=== PATIENT | male | born 1945 | race Caucasian/White ===

== ENCOUNTER 2018-02-27 17:55 | Inpatient (IN) | payer MEDICARE, MEDICAID ==
[~2018-02-27] VITALS: Ht 182.9 cm; Wt 65.3 kg
[2018-02-27] MEDS ORDERED: MORPHINE SULFATE 4 MG/1 ML DISP.SYRIN IV ONE ×2 (18:15→19:45)
[2018-02-27] MEDS ORDERED: ONDANSETRON 4 MG/2 ML VIAL IV ONE (18:15)
[2018-02-27] MEDS ORDERED: MORPHINE SULFATE 4 MG/1 ML DISP.SYRIN ONE ×2 (18:21→20:14)
[2018-02-27] MEDS ORDERED: ONDANSETRON 4 MG/2 ML VIAL ONE (18:22)
[2018-02-27] MEDS ORDERED: ACET-2154 PO ×2 (18:33)
[2018-02-27] MEDS ORDERED: GABA100C PO (18:33)
[2018-02-27] MEDS ORDERED: CARB1TAB13 PO (18:33)
[2018-02-27] MEDS ORDERED: DICL100G16 TP (18:33)
[2018-02-27] MEDS ORDERED: FLUT9.9S NS (18:33)
[2018-02-27] MEDS ORDERED: AMAN100T PO (18:33)
[2018-02-27] MEDS ORDERED: GLUC10007 MM (18:33)
[2018-02-27] MEDS ORDERED: BISA10SU8 RC (18:33)
[2018-02-27] MEDS ORDERED: OMEP20TA20 PO (18:33)
[2018-02-27] MEDS ORDERED: GEL100GE MC (18:33)
[2018-02-27] MEDS ORDERED: TRIA60LO14 TP ×2 (18:33)
[2018-02-27] MEDS ORDERED: FLUO15OI TP (18:33)
[2018-02-27] MEDS ORDERED: POTA10TA15 PO (18:33)
[2018-02-27] MEDS ORDERED: DUTA0.5C PO (18:33)
[2018-02-27] MEDS ORDERED: MEMA10TA PO (18:33)
[2018-02-27] MEDS ORDERED: FURO-151 PO (18:33)
[2018-02-27] MEDS ORDERED: POLY17PO4 PO (18:33)
[2018-02-27] MEDS ORDERED: LORA10TA7 PO (18:33)
[2018-02-27] MEDS ORDERED: PRIM50TA PO (18:33)
[2018-02-27] MEDS ORDERED: POLY15DR57 EACHEYE (18:33)
[2018-02-27] MEDS ORDERED: HYDROMORPHONE 1 MG/1 ML DISP.SYRIN IV ONE (19:45)
[2018-02-27 21:00] VITALS: BP 121/71
[2018-02-27] MEDS ORDERED: ACETAMINOPHEN 325 MG TABLET PO PRN (22:45)
[2018-02-27] MEDS: GABAPENTIN 100 MG CAPSULE PO SCH (23:16)
[2018-02-27] MEDS: MORPHINE SULFATE 4 MG/1 ML DISP.SYRIN IV PRN (23:16)
[2018-02-27] MEDS: HEPARIN SODIUM,PORCINE 5,000 UNITS/ML VIAL SQ SCH (23:16)
[2018-02-27] MEDS: PRIMIDONE 50 MG TABLET PO SCH (23:16)
[2018-02-27] MEDS: MEMANTINE HCL 10 MG TABLET PO SCH (23:16)
[2018-02-28 05:56] VITALS: BP 120/62
[2018-02-28 06:14] LABS: BASOPHILS % (AUTO) 0.2 % (0.0-2.0); EOSINOPHILS # (AUTO) 0.2 K/uL (0.0-0.7); EOSINOPHILS % (AUTO) 2.2 % (0.0-7.0); HEMATOCRIT 30.6 % (36.7-47.1); HEMOGLOBIN 10.9 g/dL (12.5-16.3); LYMPHOCYTES # (AUTO) 2.8 K/uL (20.0-40.0); LYMPHOCYTES % (AUTO) 37.6 % (20.5-51.5); MEAN CORPUSCULAR HEMOGLOBIN 35.4 uug (23.8-33.4); MEAN CORPUSCULAR HGB CONC 36 g/dL (32.5-36.3); MEAN CORPUSCULAR VOLUME 99.7 fL (73.0-96.2); MONOCYTES # (AUTO) 0.6 K/uL (2.0-10.0); MONOCYTES % (AUTO) 7.5 % (0.0-11.0); NEUTROPHILS % (AUTO) 52.5 % (38.5-71.5); PLATELET COUNT (AUTO) 227 K/uL (152-348); RED BLOOD CELL COUNT(AUTO) 3.07 MIL/uL (4.06-5.63); WHITE BLOOD COUNT (AUTO) 7.6 K/uL (3.6-10.2)
[2018-02-28 06:20] LABS: CARBON DIOXIDE 25 mmol/L (21-32); CHLORIDE 104 mmol/L (98-107); CREATININE 1.9 mg/dL (0.6-1.3); GLUCOSE 100 mg/dL (74-106); POTASSIUM 3.9 mmol/L (3.5-5.1); UREA NITROGEN, BLOOD 39 mg/dL (7-18)
[2018-02-28] MEDS ORDERED: [UNRECOGNIZED DRUG - OTHER] PO SCH (08:45)
[2018-02-28] MEDS ORDERED: FLUOCINONIDE 0.05% OINT 15 GM TUBE TP PRN (08:45)
[2018-02-28] MEDS ORDERED: ENTACAPONE PO SCH (08:45)
[2018-02-28] MEDS ORDERED: CARBIDOPA PO SCH (08:45)
[2018-02-28] MEDS ORDERED: TRIAMCINOLONE ACETONIDE 0.1% 60 ML LOTION BOTTLE TP PRN (08:45)
[2018-02-28] MEDS ORDERED: BISACODYL 10 MG SUPP.RECT RC PRN (08:45)
[2018-02-28] MEDS ORDERED: ACETAMINOPHEN 325 MG TABLET PO PRN (08:45)
[2018-02-28] MEDS ORDERED: LEVODOPA PO SCH (08:45)
[2018-02-28] MEDS ORDERED: MEMANTINE HCL 10 MG TABLET PO SCH (09:00)
[2018-02-28] MEDS ORDERED: HEPARIN SODIUM,PORCINE 5,000 UNITS/ML VIAL SQ SCH (09:00)
[2018-02-28] MEDS ORDERED: TRIAMCINOLONE ACETONIDE 0.1% 60 ML LOTION BOTTLE TP SCH (09:00)
[2018-02-28] MEDS ORDERED: VOLTAREN GEL XX SCH (09:00)
[2018-02-28] MEDS: MIRALAX 17 GM POWD.PACK PO SCH (09:33)
[2018-02-28] MEDS: LYTES/YERBA SANTA 240 ML BOTTLE MM PRN ×3 (09:34→16:45)
[2018-02-28] MEDS: FLUTICASONE PROP NASAL SPRAY 16 GM BOTTLE NS PRN (09:34)
[2018-02-28] MEDS: FUROSEMIDE 40 MG TABLET PO SCH (09:35)
[2018-02-28] MEDS: POLYVINYL ALCOHOL OPHT DROPS 15 ML BOTTLE EACHEYE SCH ×3 (09:35→16:45)
[2018-02-28] MEDS: AMANTADINE HCL 100 MG CAPSULE PO SCH ×2 (09:35→21:09)
[2018-02-28] MEDS: LORATADINE 10 MG TABLET PO SCH (09:36)
[2018-02-28] MEDS: DUTASTERIDE 0.5 MG CAPSULE PO SCH (09:36)
[2018-02-28] MEDS: ACETAMINOPHEN 325 MG TABLET PO SCH (09:36)
[2018-02-28] MEDS: HEPARIN SODIUM,PORCINE 5,000 UNITS/ML VIAL SQ SCH ×2 (09:38→21:03)
[2018-02-28] MEDS: MEMANTINE HCL 10 MG TABLET PO SCH ×2 (09:39→20:59)
[2018-02-28] MEDS: POTASSIUM CHLORIDE 10 MEQ TAB.PRT.SR PO SCH (09:39)
[2018-02-28] MEDS ORDERED: FLUOCINONIDE 0.05% SOLU 60 ML BOTTLE TP PRN (10:00)
[2018-02-28] MEDS ORDERED: TRIAMCINOLONE ACET 0.1% CREAM 15 GM TUBE TP PRN (10:15)
[2018-02-28 11:13] VITALS: BP 124/69
[2018-02-28] MEDS: ENTACAPONE 200 MG TABLET PO SCH ×4 (12:08→20:58)
[2018-02-28] MEDS: CARBIDOPA/LEVODOPA 25-100MG TABLET PO SCH ×4 (12:08→20:59)
[2018-02-28] MEDS: TRIAMCINOLONE ACET 0.1% CREAM 15 GM TUBE TP SCH ×2 (12:08→16:45)
[2018-02-28] MEDS: MORPHINE SULFATE 4 MG/1 ML DISP.SYRIN IV PRN ×2 (12:10→21:35)
[2018-02-28 15:05] VITALS: BP 122/75
[2018-02-28 20:58] VITALS: BP 126/65
[2018-02-28] MEDS: PRIMIDONE 50 MG TABLET PO SCH (20:59)
[2018-02-28] MEDS: GABAPENTIN 100 MG CAPSULE PO SCH (21:00)
[2018-02-28] MEDS ORDERED: GABAPENTIN 100 MG CAPSULE PO SCH (21:00)
[2018-02-28] MEDS ORDERED: PRIMIDONE 50 MG TABLET PO SCH (21:00)
[2018-03-01 05:26] VITALS: BP 110/70
[2018-03-01] MEDS: ENTACAPONE 200 MG TABLET PO SCH ×5 (06:08→17:33)
[2018-03-01] MEDS: CARBIDOPA/LEVODOPA 25-100MG TABLET PO SCH ×5 (06:08→17:34)
[2018-03-01 06:52] LABS: BASOPHILS % (AUTO) 0.3 % (0.0-2.0); EOSINOPHILS # (AUTO) 0.3 K/uL (0.0-0.7); EOSINOPHILS % (AUTO) 3.6 % (0.0-7.0); HEMATOCRIT 31.5 % (36.7-47.1); LYMPHOCYTES # (AUTO) 2.1 K/uL (20.0-40.0); MEAN CORPUSCULAR HEMOGLOBIN 35.2 uug (23.8-33.4); MEAN CORPUSCULAR HGB CONC 35 g/dL (32.5-36.3); MEAN CORPUSCULAR VOLUME 100.3 fL (73.0-96.2); MONOCYTES # (AUTO) 0.6 K/uL (2.0-10.0); MONOCYTES % (AUTO) 7.6 % (0.0-11.0); NEUTROPHILS # (AUTO) 4.5 K/uL (1.8-8.9); NEUTROPHILS % (AUTO) 60.5 % (38.5-71.5); PLATELET COUNT (AUTO) 210 K/uL (152-348); RED BLOOD CELL COUNT(AUTO) 3.14 MIL/uL (4.06-5.63); WHITE BLOOD COUNT (AUTO) 7.5 K/uL (3.6-10.2)
[2018-03-01] MEDS ORDERED: PANTOPRAZOLE SODIUM 40 MG TABLET.DR PO SCH (07:00)
[2018-03-01 07:36] LABS: ALANINE AMINOTRANSFERASE 7 U/L (16-63); ALKALINE PHOSPHATASE 112 U/L (50-136); ASPARTATE AMINOTRANSFERASE 20 U/L (15-37); BILIRUBIN,TOTAL 0.7 mg/dL (0.2-1.0); CARBON DIOXIDE 23 mmol/L (21-32); CHLORIDE 104 mmol/L (98-107); CREATININE 2.1 mg/dL (0.6-1.3); GLUCOSE 98 mg/dL (74-106); MAGNESIUM 2.2 mg/dL (1.8-2.4); PHOSPHOROUS 4.1 mg/dL (2.5-4.9); POTASSIUM 4.3 mmol/L (3.5-5.1); TOTAL PROTEIN, SERUM 7.6 g/dL (6.4-8.2); UREA NITROGEN, BLOOD 46 mg/dL (7-18)
[2018-03-01] MEDS: MORPHINE SULFATE 4 MG/1 ML DISP.SYRIN IV PRN (07:45)
[2018-03-01] MEDS: DUTASTERIDE 0.5 MG CAPSULE PO SCH (09:30)
[2018-03-01] MEDS: MIRALAX 17 GM POWD.PACK PO SCH (09:30)
[2018-03-01] MEDS: LORATADINE 10 MG TABLET PO SCH (09:30)
[2018-03-01] MEDS: MEMANTINE HCL 10 MG TABLET PO SCH (09:30)
[2018-03-01] MEDS: ACETAMINOPHEN 325 MG TABLET PO SCH (09:30)
[2018-03-01] MEDS: FUROSEMIDE 40 MG TABLET PO SCH (09:30)
[2018-03-01] MEDS: POTASSIUM CHLORIDE 10 MEQ TAB.PRT.SR PO SCH (09:31)
[2018-03-01] MEDS: HEPARIN SODIUM,PORCINE 5,000 UNITS/ML VIAL SQ SCH (09:32)
[2018-03-01] MEDS: POLYVINYL ALCOHOL OPHT DROPS 15 ML BOTTLE EACHEYE SCH ×3 (09:33→17:33)
[2018-03-01] MEDS: TRIAMCINOLONE ACET 0.1% CREAM 15 GM TUBE TP SCH ×2 (09:33→17:33)
[2018-03-01] MEDS: FLUTICASONE PROP NASAL SPRAY 16 GM BOTTLE NS PRN (09:45)
[2018-03-01] MEDS: LYTES/YERBA SANTA 240 ML BOTTLE MM PRN ×3 (09:45→17:33)
[2018-03-01] MEDS: AMANTADINE HCL 100 MG CAPSULE PO SCH (10:12)
[2018-03-01 11:44] VITALS: BP 150/78
[2018-03-01 15:26] VITALS: BP 108/60
== END 2018-03-01 18:15 | DRG 914 ==
LOC: ER 17:55 → TELE 21:23 → MED 22:35
PROVIDERS: ADMIT Internal Medicine Nephrology; ATTEND Internal Medicine Nephrology
DX: S09.90XA Unspecified injury of head, initial encounter (principal); N17.9 Acute kidney failure, unspecified; N18.4 Chronic kidney disease, stage 4 (severe); F02.80 Dementia in other diseases classified elsewhere, unspecified severity, without behavioral disturbance, psychotic disturbance, mood disturbance, and anxiety; G31.83 Neurocognitive disorder with Lewy bodies; S42.342A Displaced spiral fracture of shaft of humerus, left arm, initial encounter for closed fracture; W05.0XXA Fall from non-moving wheelchair, initial encounter; J32.2 Chronic ethmoidal sinusitis; Y92.129 Unspecified place in nursing home as the place of occurrence of the external cause; N40.0 Benign prostatic hyperplasia without lower urinary tract symptoms; Z99.3 Dependence on wheelchair; I73.00 Raynaud's syndrome without gangrene; K21.9 Gastro-esophageal reflux disease without esophagitis; I12.9 Hypertensive chronic kidney disease with stage 1 through stage 4 chronic kidney disease, or unspecified chronic kidney disease
CPT/HCPCS: 36415; 70450; 72125; 73030; 73060; 76770; 83735; 84100; 85025; 93005; A4663; A9155; J1644; J2270; J2405; J3535; J7030

== ENCOUNTER 2019-10-20 14:08 | Inpatient (IN) | payer MEDICARE, MEDICAID ==
[~2019-10-20] VITALS: Ht 175.3 cm; Wt 68.0 kg
[~2019-10-20 14:08] MED LIST: ACET-2154 PO; AMAN100T PO; BISA10SU11 RC; CARB1TAB13 PO; DICL100G16 TP; DUTA0.5C PO; FLUO15OI TP; FLUT9.9S NS; FURO-151 PO; GABA100C PO; GEL100GE MC; GLUC10007 MM; LORA10TA7 PO; MEMA10TA PO; OMEP20TA20 PO; POLY15DR31 EACHEYE; POLY17PO4 PO; POTA10TA15 PO; PRIM50TA PO; TRIA60LO14 TP
[2019-10-20] MEDS ORDERED: FURO20TA4 PO (14:27)
[2019-10-20] MEDS ORDERED: CARB1TAB13 PO (14:27)
[2019-10-20] MEDS ORDERED: LEVO75TA7 PO (14:27)
[2019-10-20] MEDS ORDERED: TIOT18CA3 IH (14:27)
[2019-10-20] MEDS ORDERED: BUDE10.2 IH (14:27)
[2019-10-20] MEDS ORDERED: CARB15DR OP (14:27)
[2019-10-20] MEDS ORDERED: PSEU30CA2 PO (14:27)
--- NOTE | 2019-10-20 14:36 | NUR ---
PT IS IN ROOM #1B. DR BAGLEY EVALUATE THE PT.
[2019-10-20 14:39] LABS: BASOPHILS % (AUTO) 0.5 % (0.0-2.0); EOSINOPHILS # (AUTO) 0.2 K/uL (0.0-0.7); EOSINOPHILS % (AUTO) 4.1 % (0.0-7.0); HEMATOCRIT 35.1 % (36.7-47.1); LYMPHOCYTES % (AUTO) 40.9 % (20.5-51.5); MEAN CORPUSCULAR HEMOGLOBIN 33.4 uug (23.8-33.4); MEAN CORPUSCULAR HGB CONC 34 g/dL (32.5-36.3); MEAN CORPUSCULAR VOLUME 97.8 fL (73.0-96.2); MONOCYTES # (AUTO) 0.4 K/uL (2.0-10.0); MONOCYTES % (AUTO) 7.7 % (0.0-11.0); NEUTROPHILS # (AUTO) 2.2 K/uL (1.8-8.9); NEUTROPHILS % (AUTO) 46.8 % (38.5-71.5); PLATELET COUNT (AUTO) 236 K/uL (152-348); RED BLOOD CELL COUNT(AUTO) 3.59 MIL/uL (4.06-5.63); WHITE BLOOD COUNT (AUTO) 4.8 K/uL (3.6-10.2)
[2019-10-20 14:50] LABS: CARBON DIOXIDE 28 mmol/L (21-32); CHLORIDE 102 mmol/L (98-107); CREATININE 1.7 mg/dL (0.6-1.3); GLUCOSE 112 mg/dL (74-106); POTASSIUM 4.1 mmol/L (3.5-5.1); UREA NITROGEN, BLOOD 27 mg/dL (7-18)
[2019-10-20 14:57] LABS: ALANINE AMINOTRANSFERASE < 6 U/L (16-63); ALKALINE PHOSPHATASE 146 U/L (50-136); ASPARTATE AMINOTRANSFERASE 11 U/L (15-37); BILIRUBIN,DIRECT 0.1 mg/dL (0.0-0.2); BILIRUBIN,TOTAL 0.6 mg/dL (0.2-1.0); TOTAL PROTEIN, SERUM 8.3 g/dL (6.4-8.2)
[2019-10-20] MEDS ORDERED: CEFTRIAXONE /D5W 50ML IVPB **ER PYXIS IV ONE (16:00)
[2019-10-20] MEDS ORDERED: CEFTRIAXONE 1 G in IV DEXTROSE 5% 50 ML IV ONE (16:00)
[2019-10-20] MEDS ORDERED: AZITHROMYCIN IV 500 MG in IV DEXTROSE 5% 250 ML IV ONE (16:00)
[2019-10-20] MEDS ORDERED: AZITHROMYCIN 500MG/ D5W 250ML IVPB **ER PYXIS ONLY IV ONE (16:03)
[2019-10-20] MEDS ORDERED: PIPERACILLIN/TAZOBACTAM/D5W 3.375 G in PREMIXED 1 EACH IV ONE (17:30)
[2019-10-20] MEDS ORDERED: LEVOFLOXACIN 750MG/D5W 750 MG in PREMIXED 1 EACH IV ONE (17:30)
--- NOTE | 2019-10-20 17:33 | NUR ---
REPORT WAS GIVEN TO GATEKEEPER. PT WAS TRANSFERED TO ROOM #310.
--- NOTE | 2019-10-20 17:46 | NUR ---
RECEIVED PATIENT FROM ED BY SARAH ASSISTED INTO BED FIXED AND MADE COMFORTABLE TELE APPLIED O2 TITRATED TO ONE LITER HE IS AT 100 PERCENT AT 2L BY NASAL CANULLA.HE IS AWAKE AND ALERT SEEMS TO UNDERSTAND WILL TRY TO ADMIT HIM CALLED DR CARTY FOR ADMISSION ORDERS SPOKE WITH ALBERTO STATED WILL PAGE DR CARTY.
[2019-10-20 18:04] VITALS: BP 148/76
--- NOTE | 2019-10-20 18:10 | NUR ---
dr hensley here to see patient stated will put mily all the orders.
[2019-10-20 20:55] VITALS: BP 154/80
--- NOTE | 2019-10-20 21:05 | NUR ---
Spoke with dr Zhong, ordered to resume HS gabapentin and namenda, Tylenol PRN
[2019-10-20] MEDS ORDERED: ENTACAPONE PO SCH (21:30)
[2019-10-20] MEDS ORDERED: [UNRECOGNIZED DRUG - OTHER] PO SCH (21:30)
[2019-10-20] MEDS ORDERED: BISACODYL 10 MG SUPP.RECT RC PRN (21:30)
[2019-10-20] MEDS ORDERED: LEVODOPA PO SCH (21:30)
[2019-10-20] MEDS ORDERED: ACETAMINOPHEN 325 MG TABLET PO PRN ×2 (21:30)
[2019-10-20] MEDS ORDERED: CARBIDOPA PO SCH (21:30)
[2019-10-20] MEDS ORDERED: Z GUARD REMEDY PASTE 57 GM TUBE TOP PRN (22:00)
[2019-10-20] MEDS ORDERED: ZOLPIDEM 5 MG TABLET PO PRN (22:00)
[2019-10-20] MEDS ORDERED: ONDANSETRON 4 MG/2 ML VIAL IV PRN (22:00)
[2019-10-20] MEDS ORDERED: HYDROCODONE/APAP 5-325MG TABLET PO PRN (22:00)
[2019-10-21 01:00] VITALS: BP 161/72
[2019-10-21 05:20] VITALS: BP 100/61
[2019-10-21] MEDS: LEVOTHYROXINE SODIUM 75 MCG TABLET PO SCH ×2 (07:05→07:12)
--- NOTE | 2019-10-21 07:30 | NUR ---
Patient is calm and comfortable with no signs of distress; patient will continue to be monitored through out shift.
[2019-10-21] MEDS ORDERED: MEMANTINE HCL 10 MG TABLET PO SCH ×3 (09:00→09:45)
[2019-10-21] MEDS: FUROSEMIDE 20 MG TABLET PO SCH (09:45)
[2019-10-21] MEDS: MIRALAX 17 GM POWD.PACK PO SCH (09:47)
[2019-10-21] MEDS: MEMANTINE HCL 10 MG TABLET PO SCH ×2 (09:50→20:20)
[2019-10-21] MEDS: ENTACAPONE 200 MG TABLET PO SCH ×5 (09:50→20:20)
[2019-10-21] MEDS: CARBIDOPA/LEVODOPA 25-100MG TABLET PO SCH ×5 (09:51→20:20)
--- NOTE | 2019-10-21 10:36 | NUR ---
CLINICAL PHARMACY NOTE: VANCOMYCIN PHARMACY TO DOSE Subjective: To start vancomycin in this 74 y/o male for indication of pneumonia Objective: weight 68kg height 175cm BUN/SCr 27/1.7(10/20) wbc 4.8(10/20) temp 97.6 Assessment/Plan Due to elevated srcr, will dose vancomycin by random level. Will give vanco 1gm IVPB x1 today at 1100 & plan to draw vanco random level tomorrow am for further dosing. Will continue to monitor.
[2019-10-21] MEDS: LORAZEPAM 2 MG/1 ML VIAL IV PRN ×2 (10:57→23:49)
[2019-10-21] MEDS ORDERED: VANCOMYCIN IV 1,000 MG in IV DEXTROSE 5% 250 ML IV ONE (11:00)
[2019-10-21 11:05] VITALS: BP 163/78
[2019-10-21] MEDS: PIPERACILLIN SODIUM/TAZOBACTAM 3.375 G in IV DEXTROSE 5% 50 ML IV SCH ×2 (14:47→21:02)
[2019-10-21 15:20] VITALS: BP 123/58
[2019-10-21] MEDS ORDERED: LYTES/YERBA SANTA 240 ML BOTTLE MM PRN (16:45)
[2019-10-21] MEDS ORDERED: CARB-92 PO (17:24)
--- NOTE | 2019-10-21 18:32 | NUR ---
Patient in stable condition; patient at baseline mental status ; patient had ct of chest during shift; prn Ativan was administered per patient baseline confusion and MD order. Patient family bedside through out shift; Patient medication compliant ; patient ate small amount of dinner; Report given to on coming nurse.
[2019-10-21] MEDS: IPRATROPIUM BROMIDE 0.5 MG/2.5 ML NEBU NEB SCH (19:13)
[2019-10-21] MEDS: GABAPENTIN 100 MG CAPSULE PO SCH (20:20)
[2019-10-21 20:50] VITALS: BP 123/62
[2019-10-22 00:32] VITALS: BP 145/77
[2019-10-22] MEDS: IPRATROPIUM BROMIDE 0.5 MG/2.5 ML NEBU NEB SCH ×4 (00:41→19:25)
[2019-10-22 05:05] VITALS: BP 129/61
[2019-10-22] MEDS: PIPERACILLIN SODIUM/TAZOBACTAM 3.375 G in IV DEXTROSE 5% 50 ML IV SCH ×3 (05:58→21:22)
[2019-10-22] MEDS: LEVOTHYROXINE SODIUM 75 MCG TABLET PO SCH (06:17)
[2019-10-22] MEDS: CARBIDOPA/LEVODOPA 25-100MG TABLET PO SCH ×6 (06:17→20:01)
[2019-10-22] MEDS: ENTACAPONE 200 MG TABLET PO SCH ×6 (06:18→20:00)
--- NOTE | 2019-10-22 06:56 | NUR ---
Patient slept intermittently. Noted w/ episode of agitation and combative during diaper change, PRN Ativan 0.5mg IV given. Will endorse accordingly
[2019-10-22 07:12] LABS: BASOPHILS % (AUTO) 0.6 % (0.0-2.0); EOSINOPHILS # (AUTO) 0.2 K/uL (0.0-0.7); EOSINOPHILS % (AUTO) 3.3 % (0.0-7.0); HEMATOCRIT 35.3 % (36.7-47.1); HEMOGLOBIN 12.2 g/dL (12.5-16.3); LYMPHOCYTES # (AUTO) 2.4 K/uL (20.0-40.0); LYMPHOCYTES % (AUTO) 42.1 % (20.5-51.5); MEAN CORPUSCULAR HEMOGLOBIN 33.1 uug (23.8-33.4); MEAN CORPUSCULAR HGB CONC 35 g/dL (32.5-36.3); MONOCYTES # (AUTO) 0.4 K/uL (2.0-10.0); MONOCYTES % (AUTO) 6.7 % (0.0-11.0); NEUTROPHILS # (AUTO) 2.7 K/uL (1.8-8.9); NEUTROPHILS % (AUTO) 47.3 % (38.5-71.5); PLATELET COUNT (AUTO) 237 K/uL (152-348); RED BLOOD CELL COUNT(AUTO) 3.67 MIL/uL (4.06-5.63); WHITE BLOOD COUNT (AUTO) 5.7 K/uL (3.6-10.2)
[2019-10-22 07:25] LABS: ALANINE AMINOTRANSFERASE < 6 U/L (16-63); ALKALINE PHOSPHATASE 132 U/L (50-136); ASPARTATE AMINOTRANSFERASE 10 U/L (15-37); BILIRUBIN,TOTAL 0.8 mg/dL (0.2-1.0); CARBON DIOXIDE 28 mmol/L (21-32); CHLORIDE 103 mmol/L (98-107); CREATININE 1.7 mg/dL (0.6-1.3); GLUCOSE 103 mg/dL (74-106); MAGNESIUM 2.2 mg/dL (1.8-2.4); PHOSPHOROUS 3.9 mg/dL (2.5-4.9); POTASSIUM 3.9 mmol/L (3.5-5.1); TOTAL PROTEIN, SERUM 7.8 g/dL (6.4-8.2); UREA NITROGEN, BLOOD 23 mg/dL (7-18)
--- NOTE | 2019-10-22 07:30 | NUR ---
Sleeping, appears comfortable, not in distress. Bed alarm on
[2019-10-22] MEDS ORDERED: VANCOMYCIN IV 1,000 MG in IV DEXTROSE 5% 250 ML IV ONE (09:30)
[2019-10-22] MEDS: MIRALAX 17 GM POWD.PACK PO SCH (09:46)
[2019-10-22] MEDS: FUROSEMIDE 20 MG TABLET PO SCH (09:46)
[2019-10-22] MEDS: MEMANTINE HCL 10 MG TABLET PO SCH ×2 (09:46→20:01)
[2019-10-22] MEDS: FLUTICASONE/VILANTEROL 1 EACH BLST.W.DEV INH SCH (09:48)
--- NOTE | 2019-10-22 12:00 | NUR ---
Received hand off report from ELIOT Ortiz. Patient AAOx1. Confused. In no acute distress at this time. IV intact and patent. Safety measures implemented. Will continue to monitor.
[2019-10-22 12:09] VITALS: BP 141/66
[2019-10-22 16:13] VITALS: BP 129/75
--- NOTE | 2019-10-22 18:37 | NUR ---
Patient resting in bed comfortably at this time. In no distress. at bedside. Comfort provided at all times. Will endorse care accordingly.
[2019-10-22 18:56] LABS: *BILIRUBIN,URIN NEGATIVE (NEGATIVE); *BLOOD, URINE NEGATIVE (NEGATIVE); *CLARITY,URINE CLEAR (CLEAR); *COLOR,URINE DARK YELLOW (YELLOW); *KETONES,URINE NEGATIVE (NEGATIVE); *UROBILINOGEN,URINE 0.2 E.U./dl (NORMAL); LEUKOCYTE ESTERASE ,URINE NEGATIVE (NEGATIVE); NITRITE, URINE NEGATIVE (NEGATIVE); PH,URINE 6.5 (5.0-8.0); UGLUCOSE NEGATIVE (NEGATIVE)
[2019-10-22 19:11] LABS: RBC,URINE 0-3 /HPF (0-3); WBC,URINE 0-3 /HPF (0-3)
[2019-10-22 19:12] LABS: MUCUS,URINE FEW /LPF (0-FEW); SQUAMOUS EPITHELIAL CELL,UR FEW /HPF (NONE SEEN)
[2019-10-22 19:14] LABS: *CREATININE,URINE 105.3 mg/dL (30-125); *URINE TOTAL PROTEIN RANDOM 49.4 mg/dL (<150/24HR)
[2019-10-22] MEDS: GABAPENTIN 100 MG CAPSULE PO SCH (20:01)
[2019-10-22 20:04] VITALS: BP 135/55
[2019-10-22] MEDS ORDERED: CULTURELLE CAPSULE PO SCH (21:00)
[2019-10-23] VITALS: BP 122/68
[2019-10-23] MEDS: IPRATROPIUM BROMIDE 0.5 MG/2.5 ML NEBU NEB SCH ×3 (00:46→13:42)
[2019-10-23 04:45] VITALS: BP 135/69
[2019-10-23] MEDS: PIPERACILLIN SODIUM/TAZOBACTAM 3.375 G in IV DEXTROSE 5% 50 ML IV SCH ×2 (05:17→14:43)
[2019-10-23] MEDS: ENTACAPONE 200 MG TABLET PO SCH ×4 (06:26→14:43)
[2019-10-23] MEDS: LEVOTHYROXINE SODIUM 75 MCG TABLET PO SCH (06:26)
[2019-10-23] MEDS: CARBIDOPA/LEVODOPA 25-100MG TABLET PO SCH ×4 (06:26→14:43)
--- NOTE | 2019-10-23 06:48 | NUR ---
Patient slept intermittently. Noted w/ episode of confusion trying to get out of bed, reoriented and redirected patient. All needs attended. Will endorse accordingly
[2019-10-23 06:55] LABS: CARBON DIOXIDE 27 mmol/L (21-32); CHLORIDE 104 mmol/L (98-107); POTASSIUM 3.4 mmol/L (3.5-5.1)
[2019-10-23 06:56] LABS: CREATININE 1.8 mg/dL (0.6-1.3); GLUCOSE 97 mg/dL (74-106); MAGNESIUM 2.1 mg/dL (1.8-2.4); PHOSPHOROUS 4.3 mg/dL (2.5-4.9); UREA NITROGEN, BLOOD 24 mg/dL (7-18)
[2019-10-23 07:14] LABS: ALANINE AMINOTRANSFERASE 6 U/L (16-63); ALKALINE PHOSPHATASE 108 U/L (50-136); ASPARTATE AMINOTRANSFERASE 10 U/L (15-37)
[2019-10-23 07:15] LABS: BILIRUBIN,TOTAL 0.7 mg/dL (0.2-1.0); TOTAL PROTEIN, SERUM 7.3 g/dL (6.4-8.2)
[2019-10-23 08:16] LABS: HEMATOCRIT 33.1 % (40-50); HEMOGLOBIN 11.2 G/DL (14.0-18.0); MEAN CORPUSCULAR HEMOGLOBIN 33.4 UUG (27.0-31.0); MEAN CORPUSCULAR HGB CONC 34 g/dL (32.0-37.0); MEAN CORPUSCULAR VOLUME 98.3 FL (82.0-92.0); RED BLOOD CELL COUNT(AUTO) 3.37 MIL/UL (4.7-6.1); WHITE BLOOD COUNT (AUTO) 5.1 K/UL (4.0-11.2)
[2019-10-23 08:17] LABS: BASOPHILS % (AUTO) 0.8 % (0.0-2.0); EOSINOPHILS % (AUTO) 3.9 % (0.0-7.0); LYMPHOCYTES # (AUTO) 1.9 K/UL (0.8-4.8); LYMPHOCYTES % (AUTO) 37.3 % (20.5-51.5); MONOCYTES % (AUTO) 8.6 % (0.0-11.0); NEUTROPHILS # (AUTO) 2.5 K/UL (1.8-8.9); NEUTROPHILS % (AUTO) 49.4 % (38.5-71.5); PLATELET COUNT (AUTO) 216 K/UL (150-450)
[2019-10-23 08:18] LABS: EOSINOPHILS # (AUTO) 0.2 K/uL (0.0-0.7); MONOCYTES # (AUTO) 0.4 K/UL (0.1-1.30)
[2019-10-23] MEDS: MEMANTINE HCL 10 MG TABLET PO SCH (08:49)
[2019-10-23] MEDS: MIRALAX 17 GM POWD.PACK PO SCH (08:49)
[2019-10-23] MEDS: FUROSEMIDE 20 MG TABLET PO SCH (08:49)
[2019-10-23] MEDS: FLUTICASONE/VILANTEROL 1 EACH BLST.W.DEV INH SCH (08:50)
--- NOTE | 2019-10-23 10:00 | NUR ---
Received patient awake in bed. In no acute distress. Patient appears more alert and able to hold conversation. Patietn able to feed themselves today. Safety measures implemented. Call light within reach. Will continue to monitor.
[2019-10-23] MEDS ORDERED: POTASSIUM CHLORIDE 10 MEQ TAB.PRT.SR PO ONE (12:00)
--- NOTE | 2019-10-23 15:20 | NUR ---
Discharge orders in place to go back to [facility]. Vital signs are stable. In no acute distress. Denies pain. No SOB noted. Report given to receiving facility and education provided regarding continuity of care and medication. IV and ID band removed. Exit care provided. Discharged via ambulance.
[2019-10-26 14:06] LABS: ALBUMIN 3.6 g/dL (2.9-4.4); ALPHA-1-GLOBULIN 0.2 g/dL (0.0-0.4); ALPHA-2-GLOBULIN 0.8 g/dL (0.4-1.0); BETA GLOBULIN 1.1 g/dL (0.7-1.3); GAMMA GLOBULIN 1.7 g/dL (0.4-1.8); GLOBULIN, TOTAL 3.7 g/dL (2.2-3.9); M-SPIKE Not Observed g/dL (Not Observed)
== END 2019-10-23 15:20 | DRG 193 ==
LOC: ER 14:09 → TELE3 17:14
PROVIDERS: ADMIT Internal Medicine; ATTEND Internal Medicine
DX: J15.9 Unspecified bacterial pneumonia (principal); G93.41 Metabolic encephalopathy; N18.4 Chronic kidney disease, stage 4 (severe); J44.0 Chronic obstructive pulmonary disease with (acute) lower respiratory infection; I13.0 Hypertensive heart and chronic kidney disease with heart failure and stage 1 through stage 4 chronic kidney disease, or unspecified chronic kidney disease; I50.32 Chronic diastolic (congestive) heart failure; G30.9 Alzheimer's disease, unspecified; F02.80 Dementia in other diseases classified elsewhere, unspecified severity, without behavioral disturbance, psychotic disturbance, mood disturbance, and anxiety; G20 Parkinson's disease; I73.00 Raynaud's syndrome without gangrene; K21.9 Gastro-esophageal reflux disease without esophagitis; I12.9 Hypertensive chronic kidney disease with stage 1 through stage 4 chronic kidney disease, or unspecified chronic kidney disease; Z99.3 Dependence on wheelchair; D64.9 Anemia, unspecified; R26.89 Other abnormalities of gait and mobility; G89.29 Other chronic pain; M54.9 Dorsalgia, unspecified; Z79.899 Other long term (current) drug therapy; Z79.890 Hormone replacement therapy; Z79.51 Long term (current) use of inhaled steroids
CPT/HCPCS: 36415; 70030-TC; 71045; 71250; 83605; 83735; 83970; 84100; 84155; 84156; 84165; 84300; 85025; 85730; 87040; 93005; 93307; 94640; 94664; A4663; A9155; G0378; J0456; J0696; J2060; J2543; J3370; J3590; J7030; J7050; J7060

== ENCOUNTER 2019-11-18 14:20 | Inpatient (IN) | payer MEDICARE, OTHER ==
[~2019-11-18] VITALS: Ht 167.6 cm; Wt 67.6 kg
[~2019-11-18 14:20] MED LIST changes: +BUDE10.2 IH; +CARB-92 PO; +CARB15DR OP; -DICL100G16 TP; -DUTA0.5C PO; -FLUO15OI TP; -FLUT9.9S NS; -FURO-151 PO; +FURO20TA4 PO; -GABA100C PO; +LEVO75TA7 PO; -LORA10TA7 PO; -OMEP20TA20 PO; -POLY15DR31 EACHEYE; -POTA10TA15 PO; -PRIM50TA PO; +PSEU30CA2 PO; +TIOT18CA3 IH; -TRIA60LO14 TP
[2019-11-18] MEDS ORDERED: DICL100G16 TP (14:41)
[2019-11-18] MEDS ORDERED: PRED10TA PO (14:41)
[2019-11-18] MEDS ORDERED: FAMO-132 PO (14:41)
[2019-11-18] MEDS ORDERED: IV NORMAL SALINE 1000 ML BAG IV ONE (15:00)
--- NOTE | 2019-11-18 15:19 | NUR ---
pt had a semi loose bm in the diaper. pt was given suppository for constipation mine captain. perineal hygiene provided.
--- NOTE | 2019-11-18 15:25 | NUR ---
PT SO REQUESTED APPLE JUICE FOR PT. PT DIFFICULTY SWALLOWING. STOPPED THE APPLE JUICE AND NOTIFIED .
[2019-11-18 15:35] LABS: BASOPHILS % (AUTO) 0.3 % (0.0-2.0); EOSINOPHILS % (AUTO) 0.2 % (0.0-7.0); HEMATOCRIT 30.6 % (36.7-47.1); HEMOGLOBIN 10.5 g/dL (12.5-16.3); LYMPHOCYTES # (AUTO) 1.2 K/uL (20.0-40.0); LYMPHOCYTES % (AUTO) 18.9 % (20.5-51.5); MEAN CORPUSCULAR HEMOGLOBIN 33.5 uug (23.8-33.4); MEAN CORPUSCULAR HGB CONC 34 g/dL (32.5-36.3); MEAN CORPUSCULAR VOLUME 97.4 fL (73.0-96.2); MONOCYTES # (AUTO) 0.3 K/uL (2.0-10.0); MONOCYTES % (AUTO) 4.9 % (0.0-11.0); NEUTROPHILS # (AUTO) 4.8 K/uL (1.8-8.9); NEUTROPHILS % (AUTO) 75.7 % (38.5-71.5); PLATELET COUNT (AUTO) 242 K/uL (152-348); RED BLOOD CELL COUNT(AUTO) 3.14 MIL/uL (4.06-5.63); WHITE BLOOD COUNT (AUTO) 6.3 K/uL (3.6-10.2)
[2019-11-18 15:43] LABS: CARBON DIOXIDE 27 mmol/L (21-32); CHLORIDE 104 mmol/L (98-107); CREATININE 2.3 mg/dL (0.6-1.3); GLUCOSE 123 mg/dL (74-106); POTASSIUM 4.4 mmol/L (3.5-5.1); UREA NITROGEN, BLOOD 42 mg/dL (7-18)
[2019-11-18 15:45] LABS: ETHANOL < 3 MG/DL (0-0)
[2019-11-18 15:49] LABS: ALANINE AMINOTRANSFERASE 6 U/L (16-63); ALKALINE PHOSPHATASE 137 U/L (50-136); ASPARTATE AMINOTRANSFERASE 14 U/L (15-37); BILIRUBIN,DIRECT 0.2 mg/dL (0.0-0.2); BILIRUBIN,TOTAL 0.7 mg/dL (0.2-1.0); TOTAL PROTEIN, SERUM 8.6 g/dL (6.4-8.2)
[2019-11-18 15:51] LABS: ACETAMINOPHEN < 2.0 ug/mL (10-30)
--- NOTE | 2019-11-18 16:04 | NUR ---
PATIENT BACK FROM CT NOT IN ANY DISTRESS.
[2019-11-18 16:06] LABS: THYROID STIMULATING HORMONE 2.504 mIU/mL (0.358-3.740)
--- NOTE | 2019-11-18 16:31 | NUR ---
makeup artist [facility] Doctor paged. is on-call
--- NOTE | 2019-11-18 17:02 | NUR ---
CALLED [facility] FOR PSYCH EVAL PER DR. GALANIAN REQUEST.
--- NOTE | 2019-11-18 17:41 | NUR ---
PT SO AT BEDSIDE INSISTING ON PT EATING FOOD. MD NOTIFIED.
--- NOTE | 2019-11-18 18:02 | NUR ---
tried apple saude per md order and so request. pt tolerated apple sauce.
--- NOTE | 2019-11-18 18:05 | NUR ---
radha harris at bedside.
[2019-11-18 18:07] LABS: *BILIRUBIN,URIN NEGATIVE (NEGATIVE); *BLOOD, URINE NEGATIVE (NEGATIVE); *CLARITY,URINE CLEAR (CLEAR); *COLOR,URINE DARK YELLOW (YELLOW); *KETONES,URINE NEGATIVE (NEGATIVE); *UROBILINOGEN,URINE 0.2 E.U./dl (NORMAL); LEUKOCYTE ESTERASE ,URINE NEGATIVE (NEGATIVE); NITRITE, URINE NEGATIVE (NEGATIVE); UGLUCOSE NEGATIVE (NEGATIVE)
[2019-11-18 18:14] LABS: MUCUS,URINE FEW /LPF (0-FEW); RBC,URINE 0-3 /HPF (0-3); WBC,URINE 0-3 /HPF (0-3)
[2019-11-18 18:20] LABS: *AMPHETAMINE, URINE NEGATIVE (NEGATIVE); *BARBITURATE, URINE NEGATIVE (NEGATIVE); *CANNABINOID, URINE NEGATIVE (NEGATIVE); *COCCAINE, URINE NEGATIVE (NEGATIVE); *OPIATE, URINE NEGATIVE (NEGATIVE); *PHENCYCLIDINE SCREEN,URINE NEGATIVE (NEGATIVE)
--- NOTE | 2019-11-18 18:52 | NUR ---
one to one sitter at bedside.
--- NOTE | 2019-11-18 20:01 | NUR ---
Transfered to 3rd floor Psych overflow via gurny.
--- NOTE | 2019-11-18 21:30 | NUR ---
INFORMED DR. HAWKINS OF PATIENT'S ADMISSION [facility]. PER DR HAWKINS, TO CONTINUE WITH ALL HIS HOME MEDS. HOWEVER; CARBIDOPA/LEVODOPA/ENTACAPONE/STALEVO NOT IN FORMULARY. WILL ENDORSE TO INCOMING AM SHIFT. WILL CONTINUE TO MONITOR.
[2019-11-18 22:04] VITALS: BP 138/69
--- NOTE | 2019-11-18 22:31 | NUR ---
received to care at 2030 from 3rd floor GPS overflow, on a 72 hour hold for gravely disabled, a transfer from the [facility]. according to the hold, he had been altered today, talking in Hungarian, refusing fluids, and appearing distracted by internal stimuli. upon arrival on the unit, he was confused and disoriented. he refused to stay in bed, so he was placed in the hreson chair. as of 2230, he remains calm. fluids were given. appears disorganized. distracted by internal stimuli. speaking in a combination of french and lao. will continue to monitor closely.
[2019-11-18] MEDS ORDERED: MAG HYDROX/AL HYDROX/SIMETH 30 ML LIQUID UDC PO PRN (22:45)
[2019-11-18] MEDS ORDERED: LORAZEPAM 1 MG TABLET PO PRN (22:45)
[2019-11-18] MEDS ORDERED: TEMAZEPAM 7.5 MG CAPSULE PO PRN (22:45)
[2019-11-18] MEDS ORDERED: MAGNESIUM HYDROXIDE 30 ML LIQUID UDC PO PRN (22:45)
--- NOTE | 2019-11-18 23:45 | NUR ---
Tried to give prn Restoril for sleep. Patient refused and spit out the medication.
[2019-11-19 06:42] LABS: ALANINE AMINOTRANSFERASE 17 U/L (16-63); ALKALINE PHOSPHATASE 120 U/L (50-136); ASPARTATE AMINOTRANSFERASE 22 U/L (15-37); BILIRUBIN,TOTAL 0.9 mg/dL (0.2-1.0); CARBON DIOXIDE 25 mmol/L (21-32); CHLORIDE 110 mmol/L (98-107); GLUCOSE 100 mg/dL (74-106); POTASSIUM 4.1 mmol/L (3.5-5.1); TOTAL PROTEIN, SERUM 7.9 g/dL (6.4-8.2); UREA NITROGEN, BLOOD 36 mg/dL (7-18)
[2019-11-19] MEDS: LEVOTHYROXINE SODIUM 75 MCG TABLET PO SCH (06:57)
[2019-11-19] MEDS: CARBIDOPA/LEVODOPA 10-100MG TABLET PO SCH (06:57)
[2019-11-19 07:30] VITALS: BP 117/69
[2019-11-19] MEDS ORDERED: HOME MED MISCELLANEOUS XX SCH ×4 (08:30)
[2019-11-19] MEDS ORDERED: [UNRECOGNIZED DRUG - OTHER] PO SCH (08:30)
[2019-11-19] MEDS ORDERED: LEVODOPA PO SCH (08:30)
[2019-11-19] MEDS ORDERED: ACETAMINOPHEN 325 MG TABLET PO PRN (08:30)
[2019-11-19] MEDS ORDERED: ENTACAPONE PO SCH (08:30)
[2019-11-19] MEDS ORDERED: BISACODYL 10 MG SUPP.RECT RC PRN (08:30)
[2019-11-19] MEDS ORDERED: CARBIDOPA PO SCH (08:30)
[2019-11-19] MEDS: FUROSEMIDE 20 MG TABLET PO SCH (08:32)
[2019-11-19] MEDS: MIRALAX 17 GM POWD.PACK PO SCH (08:39)
[2019-11-19] MEDS ORDERED: PSEUDOEPHEDRINE HCL 30 MG TABLET PO PRN (08:45)
[2019-11-19] MEDS ORDERED: FUROSEMIDE 20 MG TABLET PO SCH (09:00)
[2019-11-19] MEDS: FAMOTIDINE 20 MG TABLET PO SCH (09:00)
[2019-11-19] MEDS ORDERED: MIRALAX 17 GM POWD.PACK PO SCH (09:00)
[2019-11-19] MEDS ORDERED: AMANTADINE HCL 100 MG CAPSULE PO SCH ×2 (09:00)
[2019-11-19] MEDS ORDERED: predniSONE 10 MG TABLET PO SCH (09:00)
[2019-11-19] MEDS ORDERED: FAMOTIDINE 20 MG TABLET PO SCH (09:00)
[2019-11-19] MEDS ORDERED: PSEUDOEPHEDRINE HCL 30 MG PO SCH (09:00)
[2019-11-19] MEDS ORDERED: LEVOTHYROXINE SODIUM 75 MCG TABLET PO SCH (09:00)
[2019-11-19] MEDS: ENTACAPONE 200 MG TABLET PO SCH ×3 (09:37→20:08)
[2019-11-19] MEDS: POLYVINYL ALCOHOL OPHT DROPS 15 ML BOTTLE EACHEYE SCH ×2 (09:38→17:45)
--- NOTE | 2019-11-19 12:15 | NUR ---
Initial Discharge Note: Patient has been residing at the [facility] [address] [address] ([phone]). Spoke with Yissel at the facility who stated that the patient will be accepted back upon discharge. Digital Sales Assistant will continue to work with the patient, family, and MD to ensure a safe and proper discharge plan.
--- NOTE | 2019-11-19 12:15 | NUR ---
Family Contact/POA: Proposal Analyst spoke with patient's friend, Sumi Le ([phone]) who has also brought in Power of Puttying And Calking Supervisor documentation as well as Advance Directive. Sumi stated that she has been "friends" with the patient for 17 years, however, the family does not accept her. According to the patient's daughter, Merissa CedeñoPetar ([phone]), who also states is the power of patent attorney and will be bringing in the documentation this afternoon, shared with this medical writer that Sumi does not have legal rights and her POA has been voided. This medical writer informed Rileycamacho that she would need to provide documentation proving this statement.
[2019-11-19] MEDS: CARBIDOPA/LEVODOPA 25-100MG TABLET PO SCH ×3 (12:26→20:08)
--- NOTE | 2019-11-19 12:31 | NUR ---
Coordination of Care: Mainframe Architect spoke with Yissel at the [facility] [address] [address] [facility] [place] [address] ([phone]), who stated that the patient will be accepted back to the facility upon discharge.
--- NOTE | 2019-11-19 12:42 | NUR ---
Firearms Report (DOJ): Behavioral Health Care Coordinator completed and submitted a DP[employer] firearms report for 5150 grave disability certification. A copy of report has been placed in patient chart.
--- NOTE | 2019-11-19 13:16 | NUR ---
Pt received sitting in herson chair, assessed, AOx1, to self only, pleasantly confused. Pt verbally agrees to take medication then tries to spit them out. Crushing medications proved to be more most effective. Pt is able to make needs known, going between speaking Kiswahili, French, and Bruneian at various times. No combative behavior noted. Poor appetite apparent. Daughter visited for lunch, plan of care and medications discussed. All comfort measures in place. Will continue to monitor for safety.
--- NOTE | 2019-11-19 14:28 | NUR ---
Family Contact: Outside Sales Account Manager met with patient's daughter, Merissa Velazquez ([phone]) and received the DPOA documentation from her. Merissa expressed her concerns about her father's mental decline. Dr. Escobar met with Merissa as well and explained the patient's current presenting problems. Merissa shared feeling better after having spoken with us and will be in contact for updates.
[2019-11-19] MEDS ORDERED: QUETIAPINE FUMARATE 25 MG TABLET PO PRN (14:45)
[2019-11-19] MEDS: FLUTICASONE/VILANTEROL 1 EACH BLST.W.DEV INH SCH (15:35)
[2019-11-19 16:00] VITALS: BP 148/53
[2019-11-19] MEDS: IPRATROPIUM BROMIDE 0.5 MG/2.5 ML NEBU NEB SCH ×2 (16:55→20:35)
[2019-11-19 20:00] VITALS: BP 114/64
--- NOTE | 2019-11-19 20:00 | NUR ---
RECEIVED PATIENT SITTING IN A ALONZO CHAIR NEAR THE NURSING STATION. HE IS NOTED AWAKE A/O X 1. PATIENT NOTED CONFUSED, DISORGANIZED SPEECH. UNABLE TO PROVIDE ANY INFORMATION. V/S STABLE AT THIS TIME. SAFETY AND FALL PRECAUTION IN PLACE. PATIENT IS REASSURED FOR HIS SAFETY. WILL CONTINUE TO MONITOR.
[2019-11-19] MEDS: QUETIAPINE FUMARATE 25 MG TABLET PO SCH (20:08)
[2019-11-20] MEDS: ENTACAPONE 200 MG TABLET PO SCH ×7 (04:12→23:25)
[2019-11-20] MEDS: CARBIDOPA/LEVODOPA 25-100MG TABLET PO SCH ×7 (04:13→23:25)
[2019-11-20 06:47] LABS: BASOPHILS % (AUTO) 0.2 % (0.0-2.0); EOSINOPHILS % (AUTO) 0.5 % (0.0-7.0); HEMATOCRIT 28.8 % (36.7-47.1); HEMOGLOBIN 9.9 g/dL (12.5-16.3); LYMPHOCYTES # (AUTO) 2.4 K/uL (20.0-40.0); LYMPHOCYTES % (AUTO) 31.5 % (20.5-51.5); MEAN CORPUSCULAR HEMOGLOBIN 33.7 uug (23.8-33.4); MEAN CORPUSCULAR HGB CONC 34 g/dL (32.5-36.3); MEAN CORPUSCULAR VOLUME 98.4 fL (73.0-96.2); MONOCYTES # (AUTO) 0.6 K/uL (2.0-10.0); MONOCYTES % (AUTO) 8.4 % (0.0-11.0); NEUTROPHILS # (AUTO) 4.5 K/uL (1.8-8.9); NEUTROPHILS % (AUTO) 59.4 % (38.5-71.5); PLATELET COUNT (AUTO) 239 K/uL (152-348); RED BLOOD CELL COUNT(AUTO) 2.92 MIL/uL (4.06-5.63); WHITE BLOOD COUNT (AUTO) 7.5 K/uL (3.6-10.2)
[2019-11-20 06:55] LABS: IRON, SERUM 55 ug/dL (50-175)
[2019-11-20] MEDS: CARBIDOPA/LEVODOPA 10-100MG TABLET PO SCH (07:11)
[2019-11-20] MEDS: LEVOTHYROXINE SODIUM 75 MCG TABLET PO SCH (07:11)
[2019-11-20 07:28] LABS: ALANINE AMINOTRANSFERASE 9 U/L (16-63); ALKALINE PHOSPHATASE 126 U/L (50-136); ASPARTATE AMINOTRANSFERASE 25 U/L (15-37); BILIRUBIN,TOTAL 0.8 mg/dL (0.2-1.0); CARBON DIOXIDE 22 mmol/L (21-32); CHLORIDE 110 mmol/L (98-107); CREATININE 1.7 mg/dL (0.6-1.3); FERRITIN 156 ng/mL (26-388); GLUCOSE 106 mg/dL (74-106); MAGNESIUM 2.2 mg/dL (1.8-2.4); PHOSPHOROUS 3.5 mg/dL (2.5-4.9); POTASSIUM 3.8 mmol/L (3.5-5.1); UREA NITROGEN, BLOOD 40 mg/dL (7-18)
[2019-11-20] MEDS ORDERED: CARBIDOPA/LEVODOPA 10-100MG TABLET PO SCH (07:30)
[2019-11-20 08:00] VITALS: BP 149/74
[2019-11-20] MEDS: IPRATROPIUM BROMIDE 0.5 MG/2.5 ML NEBU NEB SCH ×3 (08:34→21:40)
[2019-11-20] MEDS: FUROSEMIDE 20 MG TABLET PO SCH (08:58)
[2019-11-20] MEDS: FAMOTIDINE 20 MG TABLET PO SCH (08:58)
[2019-11-20] MEDS: MIRALAX 17 GM POWD.PACK PO SCH (08:59)
[2019-11-20] MEDS: predniSONE 5 MG TABLET PO SCH (08:59)
[2019-11-20] MEDS: POLYVINYL ALCOHOL OPHT DROPS 15 ML BOTTLE EACHEYE SCH ×2 (09:00→16:35)
[2019-11-20] MEDS: FLUTICASONE/VILANTEROL 1 EACH BLST.W.DEV INH SCH (09:00)
[2019-11-20] MEDS ORDERED: predniSONE 10 MG TABLET PO SCH (09:00)
[2019-11-20] MEDS: AMANTADINE HCL 100 MG CAPSULE PO SCH (09:24)
[2019-11-20 16:00] VITALS: BP 126/72
[2019-11-20 20:00] VITALS: BP 134/75
[2019-11-20] MEDS: QUETIAPINE FUMARATE 25 MG TABLET PO SCH ×2 (20:21→23:25)
[2019-11-20] MEDS: ZOLPIDEM 5 MG TABLET PO PRN (21:10)
[2019-11-21] MEDS: CARBIDOPA/LEVODOPA 25-100MG TABLET PO SCH ×6 (04:41→20:04)
[2019-11-21] MEDS: ENTACAPONE 200 MG TABLET PO SCH ×6 (04:41→20:04)
--- NOTE | 2019-11-21 05:44 | NUR ---
Patient slept 30 min . The majority of the night the patient was having visual hallucinations.Patient is very confused and unable to have much communication. Bed bath given and patient in bed at this time. Continuing to monitor closely for safety.
[2019-11-21 07:30] VITALS: BP 145/80
[2019-11-21] MEDS: IPRATROPIUM BROMIDE 0.5 MG/2.5 ML NEBU NEB SCH ×4 (07:35→21:30)
[2019-11-21] MEDS: POLYVINYL ALCOHOL OPHT DROPS 15 ML BOTTLE EACHEYE SCH ×2 (08:23→16:08)
[2019-11-21] MEDS: MIRALAX 17 GM POWD.PACK PO SCH (08:23)
[2019-11-21] MEDS: FLUTICASONE/VILANTEROL 1 EACH BLST.W.DEV INH SCH (08:23)
[2019-11-21] MEDS: LEVOTHYROXINE SODIUM 75 MCG TABLET PO SCH (08:25)
[2019-11-21] MEDS: FAMOTIDINE 20 MG TABLET PO SCH (08:25)
[2019-11-21] MEDS: predniSONE 5 MG TABLET PO SCH (08:25)
[2019-11-21] MEDS: AMANTADINE HCL 100 MG CAPSULE PO SCH (08:25)
[2019-11-21] MEDS: FUROSEMIDE 20 MG TABLET PO SCH (08:26)
[2019-11-21] MEDS: CARBIDOPA/LEVODOPA 10-100MG TABLET PO SCH (08:27)
[2019-11-21 20:00] VITALS: BP 137/60
--- NOTE | 2019-11-21 20:00 | NUR ---
RECEIVED PATIENT IN BED. HE IS NOTED AWAKE, HE IS CONFUSED, TAKING IN SLOVENIAN. HYPERVERBAL AT TIME. SAFETY AND FALL PRECAUTION ARE IN PLACE. WILL CONTINUE TO MONITOR.
[2019-11-21] MEDS: QUETIAPINE FUMARATE 25 MG TABLET PO SCH (21:00)
--- NOTE | 2019-11-21 21:45 | NUR ---
PATIENT REFUSED ALL HIS PARKINSON MEDICATION PLUS SEROQUEL. HE IS NOTED DELUSIONAL, HAVING V/A AND A/H. PATIENT IS BEEN REASSURED AND REDIRECTED. SAFETY AND FALL PRECAUTION IN PLACE. WILL CONTINUE TO MONITOR CLOSELY.
--- NOTE | 2019-11-21 22:15 | NUR ---
DR KAUR IN THE UNIT. NEW ORDER TO ADMINISTER REMERON 7.5MG TAB.RANIS.
[2019-11-21] MEDS ORDERED: MIRTAZAPINE 15 MG TAB.RAPDIS ONE (23:21)
[2019-11-21] MEDS: MIRTAZAPINE 15 MG TAB.RAPDIS SL SCH (23:25)
[2019-11-22] MEDS: CARBIDOPA/LEVODOPA 25-100MG TABLET PO SCH ×6 (00:08→19:33)
[2019-11-22] MEDS: ENTACAPONE 200 MG TABLET PO SCH ×6 (00:08→19:33)
[2019-11-22] MEDS: ZOLPIDEM 5 MG TABLET PO PRN (02:06)
[2019-11-22 07:30] VITALS: BP 145/75
[2019-11-22] MEDS: LEVOTHYROXINE SODIUM 75 MCG TABLET PO SCH (08:52)
[2019-11-22] MEDS: predniSONE 5 MG TABLET PO SCH (08:53)
[2019-11-22] MEDS: QUETIAPINE FUMARATE 25 MG TABLET PO SCH ×2 (08:53→20:18)
[2019-11-22] MEDS: FUROSEMIDE 20 MG TABLET PO SCH (08:54)
[2019-11-22] MEDS: FAMOTIDINE 20 MG TABLET PO SCH (08:54)
[2019-11-22] MEDS: CARBIDOPA/LEVODOPA 10-100MG TABLET PO SCH (08:55)
[2019-11-22] MEDS: AMANTADINE HCL 100 MG CAPSULE PO SCH (08:56)
[2019-11-22] MEDS: POLYVINYL ALCOHOL OPHT DROPS 15 ML BOTTLE EACHEYE SCH ×2 (08:56→16:02)
[2019-11-22] MEDS: MIRALAX 17 GM POWD.PACK PO SCH ×2 (08:56→09:00)
[2019-11-22] MEDS: FLUTICASONE/VILANTEROL 1 EACH BLST.W.DEV INH SCH (09:00)
[2019-11-22] MEDS: IPRATROPIUM BROMIDE 0.5 MG/2.5 ML NEBU NEB SCH ×2 (09:01→14:40)
[2019-11-22 19:45] VITALS: BP 138/74
[2019-11-22] MEDS: MIRTAZAPINE 15 MG TAB.RAPDIS SL SCH (20:17)
[2019-11-23] MEDS: ZOLPIDEM 5 MG TABLET PO PRN (01:43)
[2019-11-23] MEDS: ENTACAPONE 200 MG TABLET PO SCH ×7 (04:35→18:43)
[2019-11-23] MEDS: CARBIDOPA/LEVODOPA 25-100MG TABLET PO SCH ×7 (04:35→18:44)
[2019-11-23] MEDS: LEVOTHYROXINE SODIUM 75 MCG TABLET PO SCH (07:30)
[2019-11-23] MEDS: CARBIDOPA/LEVODOPA 10-100MG TABLET PO SCH (07:30)
[2019-11-23] MEDS: IPRATROPIUM BROMIDE 0.5 MG/2.5 ML NEBU NEB SCH ×3 (08:33→19:30)
[2019-11-23 08:56] VITALS: BP 130/56
[2019-11-23] MEDS: QUETIAPINE FUMARATE 25 MG TABLET PO SCH ×2 (10:26→21:00)
[2019-11-23] MEDS: FAMOTIDINE 20 MG TABLET PO SCH (10:27)
[2019-11-23] MEDS: predniSONE 5 MG TABLET PO SCH (10:27)
[2019-11-23] MEDS: FUROSEMIDE 20 MG TABLET PO SCH (10:27)
[2019-11-23] MEDS: MIRALAX 17 GM POWD.PACK PO SCH (10:28)
[2019-11-23] MEDS: POLYVINYL ALCOHOL OPHT DROPS 15 ML BOTTLE EACHEYE SCH ×2 (10:28→16:25)
[2019-11-23] MEDS: FLUTICASONE/VILANTEROL 1 EACH BLST.W.DEV INH SCH (10:29)
[2019-11-23] MEDS: AMANTADINE HCL 100 MG CAPSULE PO SCH (10:29)
--- NOTE | 2019-11-23 15:54 | NUR ---
transfer care to new RN report given
[2019-11-23 16:10] VITALS: BP 111/56
[2019-11-23] MEDS: ACETAMINOPHEN 325 MG TABLET PO PRN (19:04)
[2019-11-23 20:26] VITALS: BP 128/78
[2019-11-23] MEDS: MIRTAZAPINE 15 MG TAB.RAPDIS SL SCH (21:00)
[2019-11-24] MEDS: CARBIDOPA/LEVODOPA 25-100MG TABLET PO SCH ×6 (05:48→20:24)
[2019-11-24] MEDS: ENTACAPONE 200 MG TABLET PO SCH ×6 (05:49→20:24)
[2019-11-24] MEDS: LEVOTHYROXINE SODIUM 75 MCG TABLET PO SCH (06:36)
[2019-11-24 07:30] VITALS: BP 123/66
[2019-11-24] MEDS: CARBIDOPA/LEVODOPA 10-100MG TABLET PO SCH (08:07)
[2019-11-24] MEDS: FAMOTIDINE 20 MG TABLET PO SCH (08:09)
[2019-11-24] MEDS: FUROSEMIDE 20 MG TABLET PO SCH (08:09)
[2019-11-24] MEDS: MIRALAX 17 GM POWD.PACK PO SCH (08:09)
[2019-11-24] MEDS: QUETIAPINE FUMARATE 25 MG TABLET PO SCH ×2 (08:10→21:39)
[2019-11-24] MEDS: AMANTADINE HCL 100 MG CAPSULE PO SCH (08:11)
[2019-11-24] MEDS: FLUTICASONE/VILANTEROL 1 EACH BLST.W.DEV INH SCH (08:11)
[2019-11-24] MEDS: predniSONE 5 MG TABLET PO SCH (08:11)
[2019-11-24] MEDS: POLYVINYL ALCOHOL OPHT DROPS 15 ML BOTTLE EACHEYE SCH ×2 (08:12→16:14)
[2019-11-24] MEDS: IPRATROPIUM BROMIDE 0.5 MG/2.5 ML NEBU NEB SCH ×3 (09:43→19:02)
--- NOTE | 2019-11-24 11:54 | NUR ---
Coordination of Care: Hand Cigar Maker called the [facility] ([phone]) to speak with the Dunn Coordinator and they directed me to Luiza building construction contractor. Luiza stated that they will not accept the patient back after today, which is the last day of his bed hold. Hand Cigar Maker faxed the patient's discharge packet for review of clinicals. Valorie is the qualitative field coordinator who will be reviewing the patient's referral packet and calling this marketing underwriter back. Luiza states that, Yissel whom this marketing underwriter spoke with last week who stated she is the admin coordinator, states that she is a nurse and has no say regarding patient's return.
--- NOTE | 2019-11-24 14:27 | NUR ---
Discharge Planning: Mix House Tender faxed patient's referral packet to [facility] ([phone]) attention to Jessica the marketing outreach coordinator who reviewed the patient's referral and stated that they can accept the patient to their facility once the patient is stable and ready for discharge. site worker also faxed the patient's referral packet to [facility] ([phone]) attention to marketing outreach coordinator who reviewed the patient's referral and stated that they can accept the patient to their facility once the patient is stable and ready for discharge. site worker also faxed the patient's referral packet to [facility] ([phone]) attention to [facility] marketing outreach coordinator who reviewed the patient's referral and stated that they can accept the patient to their facility once the patient is stable and ready for discharge. Mix House Tender spoke with patient's daughter/APRIL Velazquez ([phone]) and informed her of the above facilities and placement options.
[2019-11-24 16:05] VITALS: BP 154/72
--- NOTE | 2019-11-24 18:07 | NUR ---
GPS: received patient AOx1,patient compliant to medication denies SI and HI, calm and cooperative, patient seen sitting on the chair watching TV, patient denies any pain, no SOB, no distress at this time will continue monitor
[2019-11-24] MEDS: ACETAMINOPHEN 325 MG TABLET PO PRN (18:40)
[2019-11-24 20:00] VITALS: BP 137/62
[2019-11-24] MEDS: MIRTAZAPINE 15 MG TAB.RAPDIS SL SCH (21:40)
[2019-11-25] MEDS: ENTACAPONE 200 MG TABLET PO SCH ×7 (04:07→23:45)
[2019-11-25] MEDS: CARBIDOPA/LEVODOPA 25-100MG TABLET PO SCH ×7 (04:07→23:45)
[2019-11-25 07:25] LABS: BASOPHILS % (AUTO) 0.2 % (0.0-2.0); EOSINOPHILS # (AUTO) 0.1 K/uL (0.0-0.7); EOSINOPHILS % (AUTO) 0.9 % (0.0-7.0); HEMATOCRIT 30.9 % (36.7-47.1); HEMOGLOBIN 10.5 g/dL (12.5-16.3); LYMPHOCYTES # (AUTO) 1.9 K/uL (20.0-40.0); LYMPHOCYTES % (AUTO) 19.2 % (20.5-51.5); MEAN CORPUSCULAR HEMOGLOBIN 33.7 uug (23.8-33.4); MEAN CORPUSCULAR HGB CONC 34 g/dL (32.5-36.3); MEAN CORPUSCULAR VOLUME 98.8 fL (73.0-96.2); MONOCYTES # (AUTO) 0.6 K/uL (2.0-10.0); MONOCYTES % (AUTO) 6.5 % (0.0-11.0); NEUTROPHILS # (AUTO) 7.2 K/uL (1.8-8.9); NEUTROPHILS % (AUTO) 73.2 % (38.5-71.5); PLATELET COUNT (AUTO) 285 K/uL (152-348); RED BLOOD CELL COUNT(AUTO) 3.13 MIL/uL (4.06-5.63); WHITE BLOOD COUNT (AUTO) 9.9 K/uL (3.6-10.2)
[2019-11-25 07:30] VITALS: BP 139/60
[2019-11-25] MEDS: LEVOTHYROXINE SODIUM 75 MCG TABLET PO SCH (07:30)
[2019-11-25] MEDS: CARBIDOPA/LEVODOPA 10-100MG TABLET PO SCH (07:30)
[2019-11-25 07:33] LABS: CARBON DIOXIDE 25 mmol/L (21-32); CHLORIDE 108 mmol/L (98-107); GLUCOSE 97 mg/dL (74-106); MAGNESIUM 2.3 mg/dL (1.8-2.4); PHOSPHOROUS 3.2 mg/dL (2.5-4.9); POTASSIUM 3.9 mmol/L (3.5-5.1); UREA NITROGEN, BLOOD 61 mg/dL (7-18)
[2019-11-25] MEDS: IPRATROPIUM BROMIDE 0.5 MG/2.5 ML NEBU NEB SCH ×3 (08:31→18:32)
[2019-11-25] MEDS: predniSONE 5 MG TABLET PO SCH (09:00)
[2019-11-25] MEDS: FAMOTIDINE 20 MG TABLET PO SCH (09:00)
[2019-11-25] MEDS: AMANTADINE HCL 100 MG CAPSULE PO SCH (09:00)
[2019-11-25] MEDS: FLUTICASONE/VILANTEROL 1 EACH BLST.W.DEV INH SCH (09:00)
[2019-11-25] MEDS: POLYVINYL ALCOHOL OPHT DROPS 15 ML BOTTLE EACHEYE SCH ×2 (09:00→16:29)
[2019-11-25] MEDS: QUETIAPINE FUMARATE 25 MG TABLET PO SCH ×2 (09:00→20:04)
[2019-11-25] MEDS: MIRALAX 17 GM POWD.PACK PO SCH (09:00)
[2019-11-25] MEDS: FUROSEMIDE 20 MG TABLET PO SCH (09:00)
[2019-11-25 16:00] VITALS: BP 119/60
[2019-11-25] MEDS: MIRTAZAPINE 15 MG TAB.RAPDIS SL SCH (20:03)
[2019-11-25 20:30] VITALS: BP 117/55
[2019-11-26] MEDS: CARBIDOPA/LEVODOPA 25-100MG TABLET PO SCH ×6 (03:49→23:27)
[2019-11-26] MEDS: ENTACAPONE 200 MG TABLET PO SCH ×6 (03:49→23:27)
--- NOTE | 2019-11-26 05:56 | NUR ---
Patient slept 7.45 hours last night. Assist patient to bathroom for a shower. Patient now asleep in herson chair at the station. Was able to give patient the color maker formulator medications.
[2019-11-26] MEDS: CARBIDOPA/LEVODOPA 10-100MG TABLET PO SCH (06:00)
[2019-11-26] MEDS: LEVOTHYROXINE SODIUM 75 MCG TABLET PO SCH (06:00)
[2019-11-26] MEDS: IPRATROPIUM BROMIDE 0.5 MG/2.5 ML NEBU NEB SCH ×3 (07:24→21:30)
[2019-11-26 08:02] VITALS: BP 127/97
[2019-11-26] MEDS: POLYVINYL ALCOHOL OPHT DROPS 15 ML BOTTLE EACHEYE SCH ×2 (08:18→16:39)
[2019-11-26] MEDS: FLUTICASONE/VILANTEROL 1 EACH BLST.W.DEV INH SCH (08:19)
[2019-11-26] MEDS: FUROSEMIDE 20 MG TABLET PO SCH (08:19)
[2019-11-26] MEDS: QUETIAPINE FUMARATE 25 MG TABLET PO SCH ×2 (08:19→23:12)
[2019-11-26] MEDS: MIRALAX 17 GM POWD.PACK PO SCH (08:20)
[2019-11-26] MEDS: predniSONE 5 MG TABLET PO SCH (08:20)
[2019-11-26] MEDS: FAMOTIDINE 20 MG TABLET PO SCH (08:20)
[2019-11-26] MEDS ORDERED: AMANTADINE HCL 100 MG CAPSULE PO SCH (09:00)
--- NOTE | 2019-11-26 09:30 | NUR ---
Gps/Music Researcher- Asleep.refusing to eat breakfast
--- NOTE | 2019-11-26 09:30 | NUR ---
Gps/Hot Plate Press Operator-Aspeep, refusing to eat breakfast, was able to administer, routine am, meds. crushed with few bites of sorbet Offered to be fed, refused.
--- NOTE | 2019-11-26 10:00 | NUR ---
Gps/Cash Management Clerk- Dr Sparkle Ellsworth was in to see patient aware to labs.
--- NOTE | 2019-11-26 14:40 | NUR ---
Social Work Note/PC Hearing Notification: ironworker machine operator contacted patients daughter Merissa Cedeño, ([phone]) and notified patients probable cause of hearing today.
[2019-11-26 16:53] VITALS: BP 153/86
--- NOTE | 2019-11-26 20:15 | NUR ---
RECEIVED PATIENT IN HIS ROOM IN BED. HE IS NOTED SLEEPING BUT EASILY AROUSABLE. PATIENT NOTED A/O X1. HE IS POOR HISTORIAN. REQUIRED MULTIPLE REDIRECTION. PT WAS ABLE TO TAKE IS Q4HRS MEDICATIONS FOR PARKINSON. HE CONTINUE WITH POOR PO INTAKE. V/S STABLE AT THIS TIME. SAFETY AND FALL PRECAUTION IN PLACE. WILL CONTINUE TO PUSH PO INTAKE, WILL CONTINUE TO MONITOR V/S AND Q 15 MIN HEAD CHECKS.
[2019-11-26 20:26] VITALS: BP 134/53
[2019-11-26] MEDS: MIRTAZAPINE 15 MG TAB.RAPDIS SL SCH (23:11)
[2019-11-27] MEDS: CARBIDOPA/LEVODOPA 25-100MG TABLET PO SCH ×4 (04:33→16:22)
[2019-11-27] MEDS: ENTACAPONE 200 MG TABLET PO SCH ×4 (04:33→16:22)
[2019-11-27] MEDS: LEVOTHYROXINE SODIUM 75 MCG TABLET PO SCH (06:31)
[2019-11-27] MEDS: CARBIDOPA/LEVODOPA 10-100MG TABLET PO SCH (06:31)
[2019-11-27 07:30] VITALS: BP 133/62
[2019-11-27] MEDS: IPRATROPIUM BROMIDE 0.5 MG/2.5 ML NEBU NEB SCH ×2 (07:35→14:25)
[2019-11-27 07:40] LABS: BASOPHILS % (AUTO) 0.1 % (0.0-2.0); EOSINOPHILS % (AUTO) 0.4 % (0.0-7.0); HEMATOCRIT 31.9 % (36.7-47.1); HEMOGLOBIN 10.7 g/dL (12.5-16.3); LYMPHOCYTES # (AUTO) 1.8 K/uL (20.0-40.0); LYMPHOCYTES % (AUTO) 15.3 % (20.5-51.5); MEAN CORPUSCULAR HEMOGLOBIN 33.4 uug (23.8-33.4); MEAN CORPUSCULAR HGB CONC 34 g/dL (32.5-36.3); MEAN CORPUSCULAR VOLUME 99.7 fL (73.0-96.2); MONOCYTES # (AUTO) 0.8 K/uL (2.0-10.0); MONOCYTES % (AUTO) 6.9 % (0.0-11.0); NEUTROPHILS % (AUTO) 77.3 % (38.5-71.5); PLATELET COUNT (AUTO) 282 K/uL (152-348); WHITE BLOOD COUNT (AUTO) 11.6 K/uL (3.6-10.2)
[2019-11-27 07:51] LABS: CARBON DIOXIDE 29 mmol/L (21-32); CHLORIDE 115 mmol/L (98-107); CREATININE 1.9 mg/dL (0.6-1.3); GLUCOSE 115 mg/dL (74-106); MAGNESIUM 2.7 mg/dL (1.8-2.4); PHOSPHOROUS 3.8 mg/dL (2.5-4.9); POTASSIUM 3.3 mmol/L (3.5-5.1); UREA NITROGEN, BLOOD 59 mg/dL (7-18)
[2019-11-27] MEDS: QUETIAPINE FUMARATE 25 MG TABLET PO SCH (08:22)
--- NOTE | 2019-11-27 08:22 | NUR ---
Discharge Note: Patient will be discharged back to long term [facility] [address] [place] [address] ([phone]) via ambulance. Patient will be transported by ambulance at 11:00AM. Spoke with Alirio digital marketing manager and Jessica director of graduate admissions at the facility who states they are ready to accept the patient today. Patient will follow-up at the facility with Dr. Luong Cruller Maker Machine and Dr. Escobar Psychiatrist. Patient is alert and oriented times 2, denies suicidal or homicidal ideation, and is aware and agreeable with discharge plans. Patient presents with calm mood and euthymic affect. Patient is unable to plan for self-care at this time, however, is willing to accept care provided at the facility. Patient's daughter and DPOA, Merissa Velazquez ([phone]) has been made aware and is agreeable with discharge plans.
[2019-11-27] MEDS: FUROSEMIDE 20 MG TABLET PO SCH (08:23)
[2019-11-27] MEDS: FAMOTIDINE 20 MG TABLET PO SCH (08:23)
[2019-11-27] MEDS: predniSONE 5 MG TABLET PO SCH (08:24)
[2019-11-27] MEDS: FLUTICASONE/VILANTEROL 1 EACH BLST.W.DEV INH SCH (08:25)
[2019-11-27] MEDS: POLYVINYL ALCOHOL OPHT DROPS 15 ML BOTTLE EACHEYE SCH (08:25)
[2019-11-27] MEDS: MIRALAX 17 GM POWD.PACK PO SCH (09:00)
[2019-11-27] MEDS: POTASSIUM CHLORIDE 10 MEQ TAB.PRT.SR PO ONE ×2 (12:00→16:38)
--- NOTE | 2019-11-27 13:00 | NUR ---
Gps/Securities Research Analyst- Dr Sparkle Ellsworth was in to see patient, informed of the labs .results today, K+ 3.3, WBC 11.6 , claimed he is aware and orders made. Unable to administer routine parkinson meds. as well as potasium ordered, r/t patient aasleep, arouses to name and to touch, mumbles, unable to swallow mediciations as this time, patient too drowsy.b/p 133/62 HR 72, in no signs of any resp. distress, HOB elevated 02 sat 96%
--- NOTE | 2019-11-27 14:08 | NUR ---
Gps/Digital Sales Assistant- Called [facility], report was given to Nurse Renee . Informed patient had K+ of 3.3 , unable to administer order for potasium 10 meq. po as ordered by DR Ellsworth (Renal) , pt. was drowsy.
[2019-11-27 15:41] VITALS: BP 125/51
--- NOTE | 2019-11-27 16:30 | NUR ---
Gps/Home Health Care Worker- Called [facility], spoked to Deneen Cervantes, was informed patient was able to take K+10 meq x 1 dose. also informed the 1600 routine pm meds. was administered crushed w/ vanilla pudding. Also spoked to patient's daughter Nicola, informed patient is being transported via ambulance. All belongings given back to patient. Discharged via ambulance in no signs of any distress.
== END 2019-11-27 16:40 | disposition still patient (30) | DRG 885 ==
LOC: ER 14:20 → TELE3 16:42 → UNDOADMIN 16:42 → MEDSURG3 19:42 → GPS 20:52
PROVIDERS: ADMIT Psychiatry & Neurology Psychiatry; ATTEND Internal Medicine
DX: F29 Unspecified psychosis not due to a substance or known physiological condition (principal); N17.9 Acute kidney failure, unspecified; N18.9 Chronic kidney disease, unspecified; G92 Toxic encephalopathy; M47.12 Other spondylosis with myelopathy, cervical region; F02.81 Dementia in other diseases classified elsewhere, unspecified severity, with behavioral disturbance; E87.0 Hyperosmolality and hypernatremia; G30.9 Alzheimer's disease, unspecified; G20 Parkinson's disease; E03.9 Hypothyroidism, unspecified; I73.00 Raynaud's syndrome without gangrene; J44.9 Chronic obstructive pulmonary disease, unspecified; Z91.81 History of falling; R26.89 Other abnormalities of gait and mobility; Z87.01 Personal history of pneumonia (recurrent); T38.0X5A Adverse effect of glucocorticoids and synthetic analogues, initial encounter; Y92.129 Unspecified place in nursing home as the place of occurrence of the external cause; N40.0 Benign prostatic hyperplasia without lower urinary tract symptoms; I12.9 Hypertensive chronic kidney disease with stage 1 through stage 4 chronic kidney disease, or unspecified chronic kidney disease; G89.29 Other chronic pain; D64.9 Anemia, unspecified; Z79.899 Other long term (current) drug therapy; Z79.51 Long term (current) use of inhaled steroids; Z79.890 Hormone replacement therapy
CPT/HCPCS: 36415; 70030-TC; 70450; 71045; 80307; 83550; 83605; 83735; 84100; 84443; 85025; 85730; 87040; 87086; 93005; 94640; 94664; A4663; G0480; G0480-TC; J3590; J7030; J7512

== ENCOUNTER 2019-11-29 07:17 | Inpatient (IN) | payer MEDICARE, OTHER ==
[~2019-11-29] VITALS: Ht 167.6 cm; Wt 67.6 kg
[~2019-11-29 07:17] MED LIST changes: +DICL100G16 TP; +FAMO-132 PO; +PRED10TA PO
[2019-11-29] MEDS ORDERED: PIPERACILLIN SODIUM/TAZOBACTAM 3.375 G in IV DEXTROSE 5% 50 ML IV ONE (07:30)
[2019-11-29] MEDS ORDERED: ACETAMINOPHEN 325 MG SUPP RC ONE (07:30)
[2019-11-29] MEDS ORDERED: IV D5W 1000ML 1,000 ML IV ONE (07:30)
[2019-11-29] MEDS ORDERED: ACETAMINOPHEN 650 MG SUPP.RECT RC ONE ×2 (07:30→07:49)
[2019-11-29] MEDS ORDERED: PIPERACILLIN SODIUM/TAZO 3.375 GM VIAL ONE (07:48)
[2019-11-29] MEDS ORDERED: ACETAMINOPHEN 325 MG SUPP ONE (07:51)
[2019-11-29 07:54] LABS: BASOPHILS # (AUTO) 0.1 K/uL (0.0-8.0); BASOPHILS % (AUTO) 0.5 % (0.0-2.0); HEMATOCRIT 34.5 % (36.7-47.1); HEMOGLOBIN 11.3 g/dL (12.5-16.3); LYMPHOCYTES # (AUTO) 2.4 K/uL (20.0-40.0); LYMPHOCYTES % (AUTO) 17.2 % (20.5-51.5); MEAN CORPUSCULAR HEMOGLOBIN 33.3 uug (23.8-33.4); MEAN CORPUSCULAR HGB CONC 33 g/dL (32.5-36.3); MEAN CORPUSCULAR VOLUME 101.2 fL (73.0-96.2); MONOCYTES # (AUTO) 0.9 K/uL (2.0-10.0); MONOCYTES % (AUTO) 6.9 % (0.0-11.0); NEUTROPHILS # (AUTO) 10.4 K/uL (1.8-8.9); NEUTROPHILS % (AUTO) 75.4 % (38.5-71.5); PLATELET COUNT (AUTO) 266 K/uL (152-348); RED BLOOD CELL COUNT(AUTO) 3.41 MIL/uL (4.06-5.63); WHITE BLOOD COUNT (AUTO) 13.8 K/uL (3.6-10.2)
[2019-11-29 07:59] LABS: CARBON DIOXIDE 23 mmol/L (21-32); CREATININE 3.6 mg/dL (0.6-1.3); GLUCOSE 124 mg/dL (74-106); POTASSIUM 3.3 mmol/L (3.5-5.1)
[2019-11-29 08:02] LABS: CHLORIDE 127 mmol/L (98-107); UREA NITROGEN, BLOOD 103 mg/dL (7-18)
[2019-11-29] MEDS ORDERED: ZOLP5TAB2 PO (08:06)
[2019-11-29] MEDS ORDERED: CARB-95 PO (08:06)
[2019-11-29] MEDS ORDERED: BISA10SU61 RC (08:06)
[2019-11-29] MEDS ORDERED: MAGN400O6 PO (08:06)
[2019-11-29] MEDS ORDERED: MAG355OR18 PO (08:06)
[2019-11-29] MEDS ORDERED: ENTA200T PO (08:06)
[2019-11-29] MEDS ORDERED: MIRT15TA PO (08:06)
[2019-11-29] MEDS ORDERED: AMAN100T PO (08:06)
[2019-11-29] MEDS ORDERED: NA P133E RC (08:06)
[2019-11-29] MEDS ORDERED: FLUT1BLS IH (08:06)
[2019-11-29] MEDS ORDERED: ATROVENT IH (08:06)
[2019-11-29 08:13] LABS: ALANINE AMINOTRANSFERASE 16 U/L (16-63); ALKALINE PHOSPHATASE 170 U/L (50-136); ASPARTATE AMINOTRANSFERASE 37 U/L (15-37); BILIRUBIN,DIRECT 0.2 mg/dL (0.0-0.2); BILIRUBIN,TOTAL 0.8 mg/dL (0.2-1.0); TOTAL PROTEIN, SERUM 8.4 g/dL (6.4-8.2)
[2019-11-29] MEDS ORDERED: ASPIRIN 300 MG RECTAL SUPP RC ONE ×2 (08:45→08:54)
[2019-11-29 09:43] LABS: *BILIRUBIN,URIN NEGATIVE (NEGATIVE); *BLOOD, URINE 3+ (NEGATIVE); *CLARITY,URINE SLIGHTLY CLOUDY (CLEAR); *COLOR,URINE YELLOW (YELLOW); *KETONES,URINE NEGATIVE (NEGATIVE); *UROBILINOGEN,URINE 0.2 E.U./dl (NORMAL); LEUKOCYTE ESTERASE ,URINE NEGATIVE (NEGATIVE); NITRITE, URINE NEGATIVE (NEGATIVE); PH,URINE 5.5 (5.0-8.0); UGLUCOSE NEGATIVE (NEGATIVE)
[2019-11-29 10:06] LABS: BACTERIA,URINE NONE SEEN /HPF (NONE SEEN); RBC,URINE 50-80 /HPF (0-3); SQUAMOUS EPITHELIAL CELL,UR FEW /HPF (NONE SEEN); URINE AMORPHOUS URATE FEW /HPF; WBC,URINE 0-3 /HPF (0-3)
[2019-11-29] MEDS ORDERED: Z GUARD REMEDY PASTE 57 GM TUBE TOP PRN (11:30)
[2019-11-29] MEDS ORDERED: ZOLPIDEM 5 MG TABLET PO PRN (11:30)
[2019-11-29] MEDS ORDERED: ONDANSETRON 4 MG/2 ML VIAL IV PRN (11:30)
[2019-11-29] MEDS ORDERED: AMANTADINE HCL 100 MG CAPSULE PO SCH (11:45)
[2019-11-29] MEDS ORDERED: ZOLPIDEM 5 MG TABLET PO SCH (11:45)
[2019-11-29] MEDS: ENTACAPONE 200 MG TABLET PO SCH ×4 (11:45→23:23)
[2019-11-29] MEDS: CARBIDOPA/LEVODOPA CR 25-100MG TABLET.SA PO SCH ×4 (11:45→23:23)
[2019-11-29] MEDS ORDERED: POLYVINYL ALCOHOL OPHT DROPS 15 ML BOTTLE EACHEYE PRN (11:45)
[2019-11-29] MEDS ORDERED: BISACODYL 10 MG SUPP.RECT RC PRN (11:45)
[2019-11-29] MEDS: IV D5 1/2 NS 1000 ML 1,000 ML IV PRN ×2 (12:00→21:04)
[2019-11-29] MEDS ORDERED: VANCOMYCIN IV 750 MG in IV DEXTROSE 5% 250 ML IV ONE (12:30)
[2019-11-29] MEDS: IPRATROPIUM BROMIDE 0.5 MG/2.5 ML NEBU NEB SCH ×2 (12:37→19:59)
[2019-11-29] MEDS: PIPERACILLIN/TAZO 2.25 G in IV DEXTROSE 5% 50 ML IV SCH ×2 (13:53→21:04)
[2019-11-29 15:45] VITALS: BP 119/63
[2019-11-29 16:02] LABS: ALANINE AMINOTRANSFERASE 19 U/L (16-63); ALKALINE PHOSPHATASE 153 U/L (50-136); ASPARTATE AMINOTRANSFERASE 49 U/L (15-37); BILIRUBIN,TOTAL 0.8 mg/dL (0.2-1.0); CARBON DIOXIDE 25 mmol/L (21-32); CHLORIDE 125 mmol/L (98-107); CREATININE 3.8 mg/dL (0.6-1.3); GLUCOSE 141 mg/dL (74-106); MAGNESIUM 3.1 mg/dL (1.8-2.4); PHOSPHOROUS 4.3 mg/dL (2.5-4.9); POTASSIUM 3.3 mmol/L (3.5-5.1); TOTAL PROTEIN, SERUM 7.7 g/dL (6.4-8.2)
[2019-11-29 16:06] LABS: UREA NITROGEN, BLOOD 102 mg/dL (7-18)
[2019-11-29 20:00] VITALS: BP 113/65
[2019-11-29] MEDS: CARBIDOPA/LEVODOPA 10-100MG TABLET PO SCH (20:52)
[2019-11-29 21:00] VITALS: BP 138/77
[2019-11-29] MEDS: MIRTAZAPINE 15 MG TABLET PO SCH (21:05)
[2019-11-29 22:00] VITALS: BP 131/58
[2019-11-29 23:00] VITALS: BP 119/73
[2019-11-30] VITALS (10 sets, daily range): BP systolic 102–143; BP diastolic 60–78
[2019-11-30] MEDS: IPRATROPIUM BROMIDE 0.5 MG/2.5 ML NEBU NEB SCH ×4 (00:06→19:25)
[2019-11-30] MEDS: CARBIDOPA/LEVODOPA CR 25-100MG TABLET.SA PO SCH ×6 (03:13→23:42)
[2019-11-30] MEDS: ENTACAPONE 200 MG TABLET PO SCH ×6 (03:13→23:42)
[2019-11-30] MEDS: PIPERACILLIN/TAZO 2.25 G in IV DEXTROSE 5% 50 ML IV SCH ×3 (05:03→22:23)
[2019-11-30] MEDS: IV D5 1/2 NS 1000 ML 1,000 ML IV PRN ×2 (05:06→15:15)
[2019-11-30 05:20] LABS: BASOPHILS % (AUTO) 0.2 % (0.0-2.0); EOSINOPHILS # (AUTO) 0.1 K/uL (0.0-0.7); EOSINOPHILS % (AUTO) 1.2 % (0.0-7.0); HEMATOCRIT 31.5 % (36.7-47.1); HEMOGLOBIN 10.4 g/dL (12.5-16.3); LYMPHOCYTES # (AUTO) 2.5 K/uL (20.0-40.0); LYMPHOCYTES % (AUTO) 20.6 % (20.5-51.5); MEAN CORPUSCULAR HEMOGLOBIN 32.7 uug (23.8-33.4); MEAN CORPUSCULAR HGB CONC 33 g/dL (32.5-36.3); MEAN CORPUSCULAR VOLUME 99.3 fL (73.0-96.2); MONOCYTES # (AUTO) 0.6 K/uL (2.0-10.0); MONOCYTES % (AUTO) 5.2 % (0.0-11.0); NEUTROPHILS # (AUTO) 8.9 K/uL (1.8-8.9); NEUTROPHILS % (AUTO) 72.8 % (38.5-71.5); PLATELET COUNT (AUTO) 206 K/uL (152-348); RED BLOOD CELL COUNT(AUTO) 3.17 MIL/uL (4.06-5.63); WHITE BLOOD COUNT (AUTO) 12.2 K/uL (3.6-10.2)
[2019-11-30 05:37] LABS: CARBON DIOXIDE 27 mmol/L (21-32); CHLORIDE 120 mmol/L (98-107); CHOLESTEROL 141 mg/dL (<200); CREATININE 3.1 mg/dL (0.6-1.3); GLUCOSE 124 mg/dL (74-106); HDL CHOLESTEROL 32 mg/dL (40-60); MAGNESIUM 2.8 mg/dL (1.8-2.4); PHOSPHOROUS 3.5 mg/dL (2.5-4.9); POTASSIUM 3.5 mmol/L (3.5-5.1); TRIGLYCERIDES 128 MG/DL (30-150)
[2019-11-30 05:45] LABS: UREA NITROGEN, BLOOD 93 mg/dL (7-18)
[2019-11-30 06:01] LABS: CREATINE KINASE, TOTAL 1245 U/L (39-308)
[2019-11-30] MEDS: LEVOTHYROXINE SODIUM 75 MCG TABLET PO SCH (06:04)
[2019-11-30] MEDS: FAMOTIDINE 20 MG TABLET PO SCH (08:27)
[2019-11-30] MEDS: predniSONE 10 MG TABLET PO SCH (08:27)
[2019-11-30] MEDS: FLUTICASONE/VILANTEROL 1 EACH BLST.W.DEV IH SCH (08:31)
[2019-11-30] MEDS: AMANTADINE HCL 100 MG CAPSULE PO SCH (08:35)
[2019-11-30] MEDS ORDERED: VANCOMYCIN IV 750 MG in IV DEXTROSE 5% 250 ML IV ONE (09:00)
[2019-11-30] MEDS ORDERED: FLEET ENEMA 133 ML BOTTLE RC SCH (09:00)
[2019-11-30] MEDS: MIRTAZAPINE 15 MG TABLET PO SCH (20:29)
[2019-12-01] VITALS (10 sets, daily range): BP systolic 107–131; BP diastolic 56–93
[2019-12-01] MEDS: IV D5 1/2 NS 1000 ML 1,000 ML IV PRN ×3 (00:13→19:09)
[2019-12-01] MEDS: IPRATROPIUM BROMIDE 0.5 MG/2.5 ML NEBU NEB SCH ×5 (00:43→20:30)
[2019-12-01] MEDS: ENTACAPONE 200 MG TABLET PO SCH ×6 (03:59→23:50)
[2019-12-01] MEDS: CARBIDOPA/LEVODOPA CR 25-100MG TABLET.SA PO SCH ×6 (03:59→23:50)
[2019-12-01] MEDS: PIPERACILLIN/TAZO 2.25 G in IV DEXTROSE 5% 50 ML IV SCH ×3 (05:17→22:24)
[2019-12-01] MEDS: LEVOTHYROXINE SODIUM 75 MCG TABLET PO SCH (06:28)
[2019-12-01 07:43] LABS: CARBON DIOXIDE 22 mmol/L (21-32); CHLORIDE 118 mmol/L (98-107); CREATININE 2.1 mg/dL (0.6-1.3); GLUCOSE 129 mg/dL (74-106); MAGNESIUM 2.5 mg/dL (1.8-2.4); PHOSPHOROUS 3.2 mg/dL (2.5-4.9); POTASSIUM 3.2 mmol/L (3.5-5.1); UREA NITROGEN, BLOOD 66 mg/dL (7-18)
[2019-12-01 07:47] LABS: BASOPHILS % (AUTO) 0.2 % (0.0-2.0); EOSINOPHILS # (AUTO) 0.2 K/uL (0.0-0.7); EOSINOPHILS % (AUTO) 2.3 % (0.0-7.0); HEMATOCRIT 28.6 % (36.7-47.1); HEMOGLOBIN 9.6 g/dL (12.5-16.3); LYMPHOCYTES # (AUTO) 2.1 K/uL (20.0-40.0); LYMPHOCYTES % (AUTO) 21.5 % (20.5-51.5); MEAN CORPUSCULAR HEMOGLOBIN 33.8 uug (23.8-33.4); MEAN CORPUSCULAR HGB CONC 34 g/dL (32.5-36.3); MEAN CORPUSCULAR VOLUME 100.3 fL (73.0-96.2); MONOCYTES # (AUTO) 0.5 K/uL (2.0-10.0); MONOCYTES % (AUTO) 5.3 % (0.0-11.0); NEUTROPHILS # (AUTO) 6.8 K/uL (1.8-8.9); NEUTROPHILS % (AUTO) 70.7 % (38.5-71.5); PLATELET COUNT (AUTO) 156 K/uL (152-348); RED BLOOD CELL COUNT(AUTO) 2.85 MIL/uL (4.06-5.63); WHITE BLOOD COUNT (AUTO) 9.7 K/uL (3.6-10.2)
[2019-12-01 08:13] LABS: ABG BASE EXCESS -3.1 mmol/L; ABG PH 7.409 (7.350-7.450); ABG PO2 114.6 mmHg (75.0-100.0); ABG SITE RIGHT BRACHIAL; ABG TOTAL HEMOGLOBIN 9.6 G/dL (13.5-18.0); COHb 0.9 % (0.5-1.5); MetHb 0.1 % (0.0-1.5); O2Hb 97.1 % (94.0-97.0); VENT MODE Nasal Cannula
[2019-12-01] MEDS: CARBIDOPA/LEVODOPA 10-100MG TABLET PO SCH (08:42)
[2019-12-01] MEDS: predniSONE 10 MG TABLET PO SCH (08:42)
[2019-12-01] MEDS: FAMOTIDINE 20 MG TABLET PO SCH (08:42)
[2019-12-01] MEDS: FLUTICASONE/VILANTEROL 1 EACH BLST.W.DEV IH SCH (08:44)
[2019-12-01] MEDS: POTASSIUM CHLORIDE 50 ML IV SCH ×2 (13:31→14:18)
[2019-12-01] MEDS ORDERED: VANCOMYCIN IV 750 MG in IV DEXTROSE 5% 250 ML IV ONE (14:00)
[2019-12-01] MEDS: MIRTAZAPINE 15 MG TABLET PO SCH (23:18)
[2019-12-02] VITALS (7 sets, daily range): BP systolic 115–150; BP diastolic 64–89
[2019-12-02] MEDS: IPRATROPIUM BROMIDE 0.5 MG/2.5 ML NEBU NEB SCH ×4 (01:30→19:34)
[2019-12-02] MEDS: IV D5 1/2 NS 1000 ML 1,000 ML IV PRN ×2 (04:01→14:31)
[2019-12-02] MEDS: ENTACAPONE 200 MG TABLET PO SCH ×5 (04:02→19:31)
[2019-12-02] MEDS: CARBIDOPA/LEVODOPA CR 25-100MG TABLET.SA PO SCH ×5 (04:02→19:31)
[2019-12-02] MEDS: PIPERACILLIN/TAZO 2.25 G in IV DEXTROSE 5% 50 ML IV SCH ×3 (05:10→21:29)
[2019-12-02] MEDS: LEVOTHYROXINE SODIUM 75 MCG TABLET PO SCH (06:08)
[2019-12-02 06:38] LABS: BASOPHILS % (AUTO) 0.2 % (0.0-2.0); EOSINOPHILS # (AUTO) 0.3 K/uL (0.0-0.7); EOSINOPHILS % (AUTO) 2.9 % (0.0-7.0); HEMATOCRIT 28.9 % (36.7-47.1); HEMOGLOBIN 9.7 g/dL (12.5-16.3); LYMPHOCYTES % (AUTO) 22.2 % (20.5-51.5); MEAN CORPUSCULAR HEMOGLOBIN 33.4 uug (23.8-33.4); MEAN CORPUSCULAR HGB CONC 34 g/dL (32.5-36.3); MEAN CORPUSCULAR VOLUME 99.5 fL (73.0-96.2); MONOCYTES # (AUTO) 0.5 K/uL (2.0-10.0); MONOCYTES % (AUTO) 5.1 % (0.0-11.0); NEUTROPHILS # (AUTO) 6.4 K/uL (1.8-8.9); NEUTROPHILS % (AUTO) 69.6 % (38.5-71.5); PLATELET COUNT (AUTO) 170 K/uL (152-348); WHITE BLOOD COUNT (AUTO) 9.2 K/uL (3.6-10.2)
[2019-12-02] MEDS: CARBIDOPA/LEVODOPA 10-100MG TABLET PO SCH (08:29)
[2019-12-02] MEDS: FAMOTIDINE 20 MG TABLET PO SCH (08:30)
[2019-12-02] MEDS: predniSONE 10 MG TABLET PO SCH (08:30)
[2019-12-02] MEDS: AMANTADINE HCL 100 MG CAPSULE PO SCH (08:31)
[2019-12-02] MEDS: FLUTICASONE/VILANTEROL 1 EACH BLST.W.DEV IH SCH (08:31)
[2019-12-02 10:39] LABS: ALANINE AMINOTRANSFERASE 8 U/L (16-63); ALKALINE PHOSPHATASE 134 U/L (50-136); ASPARTATE AMINOTRANSFERASE 37 U/L (15-37); BILIRUBIN,TOTAL 0.5 mg/dL (0.2-1.0); CARBON DIOXIDE 21 mmol/L (21-32); CHLORIDE 114 mmol/L (98-107); CREATININE 1.7 mg/dL (0.6-1.3); GLUCOSE 118 mg/dL (74-106); MAGNESIUM 2.1 mg/dL (1.8-2.4); PHOSPHOROUS 3.4 mg/dL (2.5-4.9); POTASSIUM 3.2 mmol/L (3.5-5.1); TOTAL PROTEIN, SERUM 6.3 g/dL (6.4-8.2); UREA NITROGEN, BLOOD 45 mg/dL (7-18); VANCOMYCIN,RANDOM 14.4 ug/mL (18.0-26.0)
[2019-12-02] MEDS ORDERED: VANCOMYCIN IV 750 MG in IV DEXTROSE 5% 250 ML IV ONE (11:30)
[2019-12-02] MEDS ORDERED: POTASSIUM CHLORIDE 20 MEQ POWDER PACKET GT ONE (21:00)
[2019-12-02] MEDS: MIRTAZAPINE 15 MG TABLET PO SCH (21:11)
[2019-12-02] MEDS ORDERED: CARBIDOPA/LEVODOPA 25-100MG TABLET PO SCH (23:30)
[2019-12-03 00:02] VITALS: BP 132/68
[2019-12-03] MEDS: CARBIDOPA/LEVODOPA 25-100MG TABLET PO SCH ×6 (00:12→21:51)
[2019-12-03] MEDS: ENTACAPONE 200 MG TABLET PO SCH ×6 (00:12→21:51)
[2019-12-03] MEDS: IV D5 1/2 NS 1000 ML 1,000 ML IV PRN ×2 (00:16→10:00)
[2019-12-03] MEDS: IPRATROPIUM BROMIDE 0.5 MG/2.5 ML NEBU NEB SCH ×5 (00:31→20:05)
[2019-12-03 02:26] LABS: *CREATININE,URINE 30.2 mg/dL (30-125); *URINE TOTAL PROTEIN RANDOM 47.1 mg/dL (<150/24HR)
[2019-12-03 04:00] VITALS: BP 143/65
[2019-12-03] MEDS: PIPERACILLIN/TAZO 2.25 G in IV DEXTROSE 5% 50 ML IV SCH ×3 (05:34→21:51)
[2019-12-03] MEDS: LEVOTHYROXINE SODIUM 75 MCG TABLET PO SCH (06:02)
[2019-12-03 07:00] LABS: BASOPHILS % (AUTO) 0.3 % (0.0-2.0); EOSINOPHILS # (AUTO) 0.2 K/uL (0.0-0.7); EOSINOPHILS % (AUTO) 2.9 % (0.0-7.0); LYMPHOCYTES # (AUTO) 2.1 K/uL (20.0-40.0); LYMPHOCYTES % (AUTO) 26.6 % (20.5-51.5); MEAN CORPUSCULAR HEMOGLOBIN 34.1 uug (23.8-33.4); MEAN CORPUSCULAR HGB CONC 35 g/dL (32.5-36.3); MEAN CORPUSCULAR VOLUME 98.3 fL (73.0-96.2); MONOCYTES # (AUTO) 0.4 K/uL (2.0-10.0); MONOCYTES % (AUTO) 5.2 % (0.0-11.0); NEUTROPHILS # (AUTO) 5.2 K/uL (1.8-8.9); PLATELET COUNT (AUTO) 160 K/uL (152-348); RED BLOOD CELL COUNT(AUTO) 2.64 MIL/uL (4.06-5.63)
[2019-12-03 07:39] LABS: CARBON DIOXIDE 23 mmol/L (21-32); CHLORIDE 114 mmol/L (98-107); CREATININE 1.4 mg/dL (0.6-1.3); GLUCOSE 102 mg/dL (74-106); MAGNESIUM 1.8 mg/dL (1.8-2.4); PHOSPHOROUS 2.3 mg/dL (2.5-4.9); POTASSIUM 4.2 mmol/L (3.5-5.1); UREA NITROGEN, BLOOD 31 mg/dL (7-18); VANCOMYCIN,RANDOM 15.8 ug/mL (18.0-26.0)
[2019-12-03] MEDS: FAMOTIDINE 20 MG TABLET PO SCH (07:46)
[2019-12-03] MEDS: predniSONE 10 MG TABLET PO SCH (07:46)
[2019-12-03] MEDS: FLUTICASONE/VILANTEROL 1 EACH BLST.W.DEV IH SCH (07:48)
[2019-12-03] MEDS: CARBIDOPA/LEVODOPA 10-100MG TABLET PO SCH (08:14)
[2019-12-03 09:06] LABS: A/G RATIO 0.9 (0.7-1.7); ALBUMIN 3.2 g/dL (2.9-4.4); ALPHA-1-GLOBULIN 0.2 g/dL (0.0-0.4); GAMMA GLOBULIN 1.5 g/dL (0.4-1.8); GLOBULIN, TOTAL 3.6 g/dL (2.2-3.9); M-SPIKE Not Observed g/dL (Not Observed)
[2019-12-03 11:35] VITALS: BP 138/69
[2019-12-03] MEDS ORDERED: VANCOMYCIN IV 750 MG in IV DEXTROSE 5% 250 ML IV ONE (12:00)
[2019-12-03] MEDS ORDERED: SODIUM PHOSPHATE MM 5 MM in IV DEXTROSE 5% 100 ML IV ONE (14:30)
[2019-12-03 15:51] VITALS: BP 115/62
[2019-12-03 18:26] VITALS: BP 123/63
[2019-12-03 20:18] VITALS: BP 134/63
[2019-12-03] MEDS: MIRTAZAPINE 15 MG TABLET PO SCH (21:47)
[2019-12-03] MEDS: OSMOLITE 1.2 CAL 1,000 ML LIQUID GT PRN (21:54)
[2019-12-04] MEDS: CARBIDOPA/LEVODOPA 25-100MG TABLET PO SCH ×7 (00:16→23:54)
[2019-12-04] MEDS: ENTACAPONE 200 MG TABLET PO SCH ×7 (00:16→23:54)
[2019-12-04] MEDS: IPRATROPIUM BROMIDE 0.5 MG/2.5 ML NEBU NEB SCH ×4 (00:30→22:02)
[2019-12-04 00:43] VITALS: BP 114/69
[2019-12-04] MEDS: PIPERACILLIN/TAZO 2.25 G in IV DEXTROSE 5% 50 ML IV SCH ×3 (05:00→21:03)
[2019-12-04 05:42] VITALS: BP 121/66
[2019-12-04] MEDS: LEVOTHYROXINE SODIUM 75 MCG TABLET PO SCH (06:00)
[2019-12-04 07:16] LABS: BASOPHILS % (AUTO) 0.2 % (0.0-2.0); EOSINOPHILS # (AUTO) 0.2 K/uL (0.0-0.7); EOSINOPHILS % (AUTO) 2.3 % (0.0-7.0); HEMATOCRIT 24.5 % (36.7-47.1); HEMOGLOBIN 8.3 g/dL (12.5-16.3); LYMPHOCYTES # (AUTO) 2.2 K/uL (20.0-40.0); LYMPHOCYTES % (AUTO) 31.6 % (20.5-51.5); MEAN CORPUSCULAR HEMOGLOBIN 33.2 uug (23.8-33.4); MEAN CORPUSCULAR HGB CONC 34 g/dL (32.5-36.3); MEAN CORPUSCULAR VOLUME 97.8 fL (73.0-96.2); MONOCYTES # (AUTO) 0.4 K/uL (2.0-10.0); MONOCYTES % (AUTO) 5.2 % (0.0-11.0); NEUTROPHILS # (AUTO) 4.2 K/uL (1.8-8.9); NEUTROPHILS % (AUTO) 60.7 % (38.5-71.5); PLATELET COUNT (AUTO) 168 K/uL (152-348); RED BLOOD CELL COUNT(AUTO) 2.51 MIL/uL (4.06-5.63)
[2019-12-04 07:33] LABS: ALANINE AMINOTRANSFERASE 10 U/L (16-63); ALKALINE PHOSPHATASE 127 U/L (50-136); ASPARTATE AMINOTRANSFERASE 30 U/L (15-37); BILIRUBIN,TOTAL 0.6 mg/dL (0.2-1.0); CARBON DIOXIDE 22 mmol/L (21-32); CHLORIDE 110 mmol/L (98-107); CREATININE 1.4 mg/dL (0.6-1.3); GLUCOSE 110 mg/dL (74-106); MAGNESIUM 1.7 mg/dL (1.8-2.4); PHOSPHOROUS 2.8 mg/dL (2.5-4.9); POTASSIUM 4.1 mmol/L (3.5-5.1); TOTAL PROTEIN, SERUM 5.7 g/dL (6.4-8.2); UREA NITROGEN, BLOOD 25 mg/dL (7-18)
[2019-12-04 08:25] VITALS: BP 130/65
[2019-12-04] MEDS: FLUTICASONE/VILANTEROL 1 EACH BLST.W.DEV IH SCH (08:37)
[2019-12-04] MEDS: predniSONE 10 MG TABLET PO SCH (08:38)
[2019-12-04] MEDS: AMANTADINE HCL 100 MG CAPSULE PO SCH (08:38)
[2019-12-04] MEDS: FAMOTIDINE 20 MG TABLET PO SCH (08:38)
[2019-12-04] MEDS: CARBIDOPA/LEVODOPA 10-100MG TABLET PO SCH (08:38)
[2019-12-04] MEDS: VANCOMYCIN IV 750 MG in IV DEXTROSE 5% 250 ML IV SCH (08:39)
[2019-12-04] MEDS: OSMOLITE 1.2 CAL 1,000 ML LIQUID GT PRN (08:41)
[2019-12-04] MEDS: IV D5 1/2 NS 1000 ML 1,000 ML IV PRN ×2 (08:54)
[2019-12-04 12:00] VITALS: BP 136/61
[2019-12-04] MEDS: MAGNESIUM SULFATE/D5W 100 ML IV SCH ×2 (14:45→15:29)
[2019-12-04 16:00] VITALS: BP 105/53
[2019-12-04] MEDS: MIRTAZAPINE 15 MG TABLET PO SCH (20:18)
[2019-12-04 20:44] VITALS: BP 118/58
[2019-12-05 01:50] VITALS: BP 146/76
[2019-12-05] MEDS: IPRATROPIUM BROMIDE 0.5 MG/2.5 ML NEBU NEB SCH ×4 (03:01→20:35)
[2019-12-05] MEDS: ENTACAPONE 200 MG TABLET PO SCH ×5 (04:53→20:27)
[2019-12-05] MEDS: CARBIDOPA/LEVODOPA 25-100MG TABLET PO SCH ×5 (04:53→20:27)
[2019-12-05] MEDS: PIPERACILLIN/TAZO 2.25 G in IV DEXTROSE 5% 50 ML IV SCH ×3 (05:01→22:29)
[2019-12-05 06:23] VITALS: BP 143/58
[2019-12-05] MEDS: LEVOTHYROXINE SODIUM 75 MCG TABLET PO SCH (06:42)
[2019-12-05 06:58] LABS: CREATININE 1.3 mg/dL (0.6-1.3); MAGNESIUM 2.1 mg/dL (1.8-2.4); POTASSIUM 3.5 mmol/L (3.5-5.1)
[2019-12-05] MEDS: predniSONE 10 MG TABLET PO SCH (08:51)
[2019-12-05] MEDS: FAMOTIDINE 20 MG TABLET PO SCH (08:51)
[2019-12-05] MEDS: CARBIDOPA/LEVODOPA 10-100MG TABLET PO SCH (08:51)
[2019-12-05] MEDS: FLUTICASONE/VILANTEROL 1 EACH BLST.W.DEV IH SCH (08:52)
[2019-12-05] MEDS: ACETAMINOPHEN 325 MG TABLET PO PRN (08:53)
[2019-12-05] MEDS: OSMOLITE 1.2 CAL 1,000 ML LIQUID GT PRN (09:10)
[2019-12-05] MEDS: IV D5 1/2 NS 1000 ML 1,000 ML IV PRN ×2 (09:10)
[2019-12-05 11:34] VITALS: BP 124/63
[2019-12-05] MEDS: VANCOMYCIN IV 750 MG in IV DEXTROSE 5% 250 ML IV SCH (15:00)
[2019-12-05 16:00] VITALS: BP 141/65
[2019-12-05] MEDS: MIRTAZAPINE 15 MG TABLET PO SCH (20:27)
[2019-12-05 20:42] VITALS: BP 114/60
[2019-12-06] MEDS: ENTACAPONE 200 MG TABLET PO SCH ×7 (00:13→23:40)
[2019-12-06] MEDS: CARBIDOPA/LEVODOPA 25-100MG TABLET PO SCH ×7 (00:13→23:40)
[2019-12-06 00:40] VITALS: BP 123/58
[2019-12-06] MEDS: OSMOLITE 1.2 CAL 1,000 ML LIQUID GT PRN ×2 (01:35→21:37)
[2019-12-06] MEDS: IPRATROPIUM BROMIDE 0.5 MG/2.5 ML NEBU NEB SCH ×4 (02:35→22:24)
[2019-12-06 05:19] VITALS: BP 126/63
[2019-12-06] MEDS: PIPERACILLIN/TAZO 2.25 G in IV DEXTROSE 5% 50 ML IV SCH ×3 (06:12→21:21)
[2019-12-06 06:17] LABS: BASOPHILS % (AUTO) 0.2 % (0.0-2.0); EOSINOPHILS # (AUTO) 0.1 K/uL (0.0-0.7); EOSINOPHILS % (AUTO) 2.1 % (0.0-7.0); HEMATOCRIT 24.7 % (36.7-47.1); HEMOGLOBIN 8.7 g/dL (12.5-16.3); LYMPHOCYTES # (AUTO) 1.8 K/uL (20.0-40.0); LYMPHOCYTES % (AUTO) 26.7 % (20.5-51.5); MEAN CORPUSCULAR HEMOGLOBIN 33.8 uug (23.8-33.4); MEAN CORPUSCULAR HGB CONC 35 g/dL (32.5-36.3); MEAN CORPUSCULAR VOLUME 95.3 fL (73.0-96.2); MONOCYTES # (AUTO) 0.4 K/uL (2.0-10.0); MONOCYTES % (AUTO) 6.6 % (0.0-11.0); NEUTROPHILS # (AUTO) 4.2 K/uL (1.8-8.9); NEUTROPHILS % (AUTO) 64.4 % (38.5-71.5); PLATELET COUNT (AUTO) 238 K/uL (152-348); RED BLOOD CELL COUNT(AUTO) 2.59 MIL/uL (4.06-5.63); WHITE BLOOD COUNT (AUTO) 6.6 K/uL (3.6-10.2)
[2019-12-06] MEDS: LEVOTHYROXINE SODIUM 75 MCG TABLET PO SCH (06:34)
[2019-12-06 06:41] LABS: CREATININE 1.3 mg/dL (0.6-1.3); MAGNESIUM 1.9 mg/dL (1.8-2.4); PHOSPHOROUS 2.4 mg/dL (2.5-4.9); POTASSIUM 3.6 mmol/L (3.5-5.1)
[2019-12-06] MEDS: predniSONE 10 MG TABLET PO SCH (08:21)
[2019-12-06] MEDS: FAMOTIDINE 20 MG TABLET PO SCH (08:21)
[2019-12-06] MEDS: CARBIDOPA/LEVODOPA 10-100MG TABLET PO SCH (08:21)
[2019-12-06] MEDS: AMANTADINE HCL 100 MG CAPSULE PO SCH (08:22)
[2019-12-06] MEDS: FLUTICASONE/VILANTEROL 1 EACH BLST.W.DEV IH SCH (09:05)
[2019-12-06] MEDS ORDERED: NEUTRA PHOS PACKET NG ONE (10:15)
[2019-12-06 11:04] VITALS: BP 129/63
[2019-12-06 15:02] VITALS: BP 107/51
[2019-12-06] MEDS: VANCOMYCIN IV 750 MG in IV DEXTROSE 5% 250 ML IV SCH (20:16)
[2019-12-06] MEDS: MIRTAZAPINE 15 MG TABLET PO SCH (20:16)
[2019-12-06 20:38] VITALS: BP 140/70
[2019-12-07 00:36] VITALS: BP 145/89
[2019-12-07 01:10] LABS: ABG HCO3 22.6 mmol/L; ABG PCO2 30.1 mmHg (35.0-45.0); ABG PH 7.494 (7.350-7.450); ABG PO2 100.3 mmHg (75.0-100.0); ABG SITE RIGHT BRACHIAL; ABG TOTAL HEMOGLOBIN 10.6 G/dL (13.5-18.0); COHb 0.7 % (0.5-1.5); O2Hb 97.1 % (94.0-97.0); VENT MODE Nasal Cannula
[2019-12-07] MEDS: IPRATROPIUM BROMIDE 0.5 MG/2.5 ML NEBU NEB SCH ×4 (02:12→19:13)
[2019-12-07] MEDS: ENTACAPONE 200 MG TABLET PO SCH ×6 (03:59→23:08)
[2019-12-07] MEDS: CARBIDOPA/LEVODOPA 25-100MG TABLET PO SCH ×6 (03:59→23:08)
[2019-12-07 05:39] VITALS: BP 119/61
[2019-12-07] MEDS: PIPERACILLIN/TAZO 2.25 G in IV DEXTROSE 5% 50 ML IV SCH ×3 (05:52→21:19)
[2019-12-07] MEDS: LEVOTHYROXINE SODIUM 75 MCG TABLET PO SCH (06:00)
[2019-12-07 06:48] LABS: BASOPHILS % (AUTO) 0.3 % (0.0-2.0); EOSINOPHILS # (AUTO) 0.2 K/uL (0.0-0.7); EOSINOPHILS % (AUTO) 2.7 % (0.0-7.0); HEMATOCRIT 25.2 % (36.7-47.1); LYMPHOCYTES # (AUTO) 1.9 K/uL (20.0-40.0); LYMPHOCYTES % (AUTO) 30.8 % (20.5-51.5); MEAN CORPUSCULAR HEMOGLOBIN 34.3 uug (23.8-33.4); MEAN CORPUSCULAR HGB CONC 36 g/dL (32.5-36.3); MEAN CORPUSCULAR VOLUME 96.7 fL (73.0-96.2); MONOCYTES # (AUTO) 0.5 K/uL (2.0-10.0); MONOCYTES % (AUTO) 7.3 % (0.0-11.0); NEUTROPHILS # (AUTO) 3.6 K/uL (1.8-8.9); NEUTROPHILS % (AUTO) 58.9 % (38.5-71.5); PLATELET COUNT (AUTO) 264 K/uL (152-348); RED BLOOD CELL COUNT(AUTO) 2.61 MIL/uL (4.06-5.63); WHITE BLOOD COUNT (AUTO) 6.2 K/uL (3.6-10.2)
[2019-12-07 07:09] LABS: CARBON DIOXIDE 27 mmol/L (21-32); CHLORIDE 106 mmol/L (98-107); CREATININE 1.4 mg/dL (0.6-1.3); GLUCOSE 100 mg/dL (74-106); MAGNESIUM 1.9 mg/dL (1.8-2.4); POTASSIUM 3.8 mmol/L (3.5-5.1); UREA NITROGEN, BLOOD 26 mg/dL (7-18)
[2019-12-07] MEDS: CARBIDOPA/LEVODOPA 10-100MG TABLET PO SCH (08:05)
[2019-12-07] MEDS: FLUTICASONE/VILANTEROL 1 EACH BLST.W.DEV IH SCH (08:06)
[2019-12-07] MEDS: predniSONE 10 MG TABLET PO SCH (08:06)
[2019-12-07] MEDS: FAMOTIDINE 20 MG TABLET PO SCH (08:06)
[2019-12-07 11:49] VITALS: BP 122/74
[2019-12-07 16:10] VITALS: BP 117/95
[2019-12-07] MEDS: ACETAMINOPHEN 325 MG TABLET PO PRN ×2 (16:11→21:18)
[2019-12-07 20:19] VITALS: BP 120/50
[2019-12-07] MEDS: MIRTAZAPINE 15 MG TABLET PO SCH (21:18)
[2019-12-08] MEDS: IPRATROPIUM BROMIDE 0.5 MG/2.5 ML NEBU NEB SCH ×4 (00:30→14:35)
[2019-12-08] MEDS: ENTACAPONE 200 MG TABLET PO SCH ×6 (03:32→23:06)
[2019-12-08] MEDS: CARBIDOPA/LEVODOPA 25-100MG TABLET PO SCH ×6 (03:33→23:06)
[2019-12-08] MEDS: VANCOMYCIN IV 750 MG in IV DEXTROSE 5% 250 ML IV SCH (04:30)
[2019-12-08] MEDS: PIPERACILLIN/TAZO 2.25 G in IV DEXTROSE 5% 50 ML IV SCH ×3 (05:32→21:35)
[2019-12-08] MEDS: LEVOTHYROXINE SODIUM 75 MCG TABLET PO SCH (06:25)
[2019-12-08] MEDS ORDERED: FENTANYL CITRATE 100 MCG/2 ML AMPUL ONE (07:03)
[2019-12-08] MEDS ORDERED: PROPOFOL 200 MG/20 ML BOTTLE IV ONE (08:26)
[2019-12-08] MEDS ORDERED: DEXAMETHASONE SOD PHOSPHATE 4 MG INJ IV ONE (08:26)
[2019-12-08] MEDS ORDERED: CEFAZOLIN 1 G VIAL IM ONE (08:26)
[2019-12-08] MEDS ORDERED: IRR STERIL WATER FOR IRR 1000 ML BOTTLE IR ONE (08:26)
[2019-12-08] MEDS ORDERED: IV NORMAL SALINE 1000 ML BAG IV ONE (08:26)
[2019-12-08] MEDS ORDERED: LIDOCAINE-MPF 2% 5 ML VIAL IJ ONE (08:26)
[2019-12-08 09:30] VITALS: BP 140/69
[2019-12-08] MEDS: predniSONE 10 MG TABLET PO SCH (09:30)
[2019-12-08] MEDS: FAMOTIDINE 20 MG TABLET PO SCH (09:30)
[2019-12-08] MEDS: CARBIDOPA/LEVODOPA 10-100MG TABLET PO SCH (09:30)
[2019-12-08] MEDS: AMANTADINE HCL 100 MG CAPSULE PO SCH (09:30)
[2019-12-08] MEDS: FLUTICASONE/VILANTEROL 1 EACH BLST.W.DEV IH SCH (09:32)
[2019-12-08 10:00] VITALS: BP 140/69
[2019-12-08] MEDS: OSMOLITE 1.2 CAL 1,000 ML LIQUID GT PRN (10:07)
[2019-12-08 10:30] VITALS: BP 126/69
[2019-12-08 16:04] VITALS: BP 114/85
[2019-12-08 20:02] VITALS: BP 123/58
[2019-12-08] MEDS: MIRTAZAPINE 15 MG TABLET PO SCH (20:16)
[2019-12-08] MEDS: HYDROCODONE/APAP 5-325MG TABLET PO PRN (20:47)
[2019-12-09] MEDS: IPRATROPIUM BROMIDE 0.5 MG/2.5 ML NEBU NEB SCH ×3 (00:39→13:06)
[2019-12-09] MEDS: CARBIDOPA/LEVODOPA 25-100MG TABLET PO SCH ×4 (03:22→16:52)
[2019-12-09] MEDS: ENTACAPONE 200 MG TABLET PO SCH ×4 (03:22→16:52)
[2019-12-09 04:00] VITALS: BP 121/61
[2019-12-09] MEDS ORDERED: VANCOMYCIN IV 750 MG in IV DEXTROSE 5% 250 ML IV SCH (05:30)
[2019-12-09] MEDS: HYDROCODONE/APAP 5-325MG TABLET PO PRN (05:59)
[2019-12-09] MEDS: PIPERACILLIN/TAZO 2.25 G in IV DEXTROSE 5% 50 ML IV SCH ×2 (06:00→14:21)
[2019-12-09] MEDS: LEVOTHYROXINE SODIUM 75 MCG TABLET PO SCH (06:00)
[2019-12-09 06:43] LABS: BASOPHILS % (AUTO) 0.2 % (0.0-2.0); EOSINOPHILS % (AUTO) 0.1 % (0.0-7.0); HEMOGLOBIN 9.6 g/dL (12.5-16.3); LYMPHOCYTES # (AUTO) 2.3 K/uL (20.0-40.0); LYMPHOCYTES % (AUTO) 18.7 % (20.5-51.5); MEAN CORPUSCULAR HEMOGLOBIN 32.9 uug (23.8-33.4); MEAN CORPUSCULAR HGB CONC 34 g/dL (32.5-36.3); MEAN CORPUSCULAR VOLUME 95.9 fL (73.0-96.2); MONOCYTES # (AUTO) 0.5 K/uL (2.0-10.0); MONOCYTES % (AUTO) 3.8 % (0.0-11.0); NEUTROPHILS # (AUTO) 9.5 K/uL (1.8-8.9); NEUTROPHILS % (AUTO) 77.2 % (38.5-71.5); PLATELET COUNT (AUTO) 375 K/uL (152-348); RED BLOOD CELL COUNT(AUTO) 2.92 MIL/uL (4.06-5.63); WHITE BLOOD COUNT (AUTO) 12.3 K/uL (3.6-10.2)
[2019-12-09 06:58] LABS: CARBON DIOXIDE 25 mmol/L (21-32); CHLORIDE 103 mmol/L (98-107); CREATININE 1.5 mg/dL (0.6-1.3); GLUCOSE 97 mg/dL (74-106); MAGNESIUM 2.1 mg/dL (1.8-2.4); PHOSPHOROUS 3.3 mg/dL (2.5-4.9); POTASSIUM 3.4 mmol/L (3.5-5.1); UREA NITROGEN, BLOOD 29 mg/dL (7-18)
[2019-12-09] MEDS: FAMOTIDINE 20 MG TABLET PO SCH (08:11)
[2019-12-09] MEDS: predniSONE 10 MG TABLET PO SCH (08:12)
[2019-12-09] MEDS: CARBIDOPA/LEVODOPA 10-100MG TABLET PO SCH (09:11)
[2019-12-09] MEDS: FLUTICASONE/VILANTEROL 1 EACH BLST.W.DEV IH SCH (09:11)
[2019-12-09] MEDS: OSMOLITE 1.2 CAL 1,000 ML LIQUID GT PRN (11:10)
[2019-12-09] MEDS ORDERED: POTASSIUM CHLORIDE 50 ML IV SCH (11:15)
[2019-12-09 11:44] VITALS: BP 100/52
[2019-12-09 16:07] VITALS: BP 113/63
[2019-12-10] MEDS ORDERED: predniSONE 10 MG TABLET PO SCH (09:00)
[2019-12-10] MEDS ORDERED: predniSONE 5 MG TABLET PO SCH (09:00)
== END 2019-12-09 19:20 | DRG 871 ==
LOC: ER 07:17 → CCU 10:10 → TELE-TD3 11-30 06:50 → TELE3 12-03 13:46 → MEDSURG3 12-07 12:15
PROVIDERS: ADMIT Internal Medicine; ATTEND Internal Medicine
PROC: 0DH67UZ Insertion of Feeding Device into Stomach, Via Natural or Artificial Opening (ICD-10-PCS; 2019-11-30)
PROC: 05H933Z Insertion of Infusion Device into Right Brachial Vein, Percutaneous Approach (ICD-10-PCS; principal; 2019-12-03)
PROC: 3E0G76Z Introduction of Nutritional Substance into Upper GI, Via Natural or Artificial Opening (ICD-10-PCS; 2019-12-03)
DX: A41.9 Sepsis, unspecified organism (principal); G92 Toxic encephalopathy; J18.9 Pneumonia, unspecified organism; R40.2222 Coma scale, best verbal response, incomprehensible words, at arrival to emergency department; E87.0 Hyperosmolality and hypernatremia; J44.0 Chronic obstructive pulmonary disease with (acute) lower respiratory infection; J98.11 Atelectasis; G20 Parkinson's disease; G30.9 Alzheimer's disease, unspecified; F02.80 Dementia in other diseases classified elsewhere, unspecified severity, without behavioral disturbance, psychotic disturbance, mood disturbance, and anxiety; E86.0 Dehydration; R40.2352 Coma scale, best motor response, localizes pain, at arrival to emergency department; I73.00 Raynaud's syndrome without gangrene; R13.10 Dysphagia, unspecified; S90.32XA Contusion of left foot, initial encounter; X58.XXXA Exposure to other specified factors, initial encounter; Y92.89 Other specified places as the place of occurrence of the external cause; M20.42 Other hammer toe(s) (acquired), left foot; M20.41 Other hammer toe(s) (acquired), right foot; M24.562 Contracture, left knee; M24.561 Contracture, right knee; E87.6 Hypokalemia; L89.156 Pressure-induced deep tissue damage of sacral region; S61.402A Unspecified open wound of left hand, initial encounter; Y92.129 Unspecified place in nursing home as the place of occurrence of the external cause; E03.9 Hypothyroidism, unspecified; I12.9 Hypertensive chronic kidney disease with stage 1 through stage 4 chronic kidney disease, or unspecified chronic kidney disease; N18.3 Chronic kidney disease, stage 3 (moderate); F39 Unspecified mood [affective] disorder; K21.9 Gastro-esophageal reflux disease without esophagitis; M47.9 Spondylosis, unspecified; N40.0 Benign prostatic hyperplasia without lower urinary tract symptoms; Z79.890 Hormone replacement therapy; Z79.899 Other long term (current) drug therapy; D64.9 Anemia, unspecified; R93.5 Abnormal findings on diagnostic imaging of other abdominal regions, including retroperitoneum
CPT/HCPCS: 36415; 36600; 43761; 70030-TC; 70450; 71045; 74018; 76770; 83605; 83735; 83970; 84100; 84155; 84156; 84165; 84300; 84443; 85025; 85730; 87040; 87086; 87400; 93005; 94640; 94664; A4217; A4663; G0378; J0690; J1100; J2543; J3010; J3370; J3475; J3480; J3490; J3590; J7030; J7050; J7060; J7512